=== PATIENT | female | born 1985 | race Caucasian/White ===

== ENCOUNTER 2021-01-19 12:46 | Inpatient (IN) | payer BC ==
[2021-01-19] MEDS ORDERED: Sodium Chloride 0.9% 10 ML Syringe FLUSH PRN (13:58)
[2021-01-19] MEDS ORDERED: Water For Irrigation,Sterile 1,000 ML Container IRR PRN (13:58)
[2021-01-19] MEDS ORDERED: Sodium Chloride 0.9% 2.5 ML Syringe FLUSH PRN (13:58)
[2021-01-19] MEDS ORDERED: Nalbuphine 10 MG/1 ML Vial IVPUSH PRN (13:58)
[2021-01-19] MEDS ORDERED: Tranexamic Acid 1,000 MG in Sodium Chloride 0.9% 100 ML IV PRN (13:58)
[2021-01-19] MEDS ORDERED: Sodium Chloride 0.9% 10 ML SDV IV PRN (13:58)
[2021-01-19] MEDS ORDERED: Methylergonovine 0.2 MG/1 ML Amp IM PRN (13:58)
[2021-01-19] MEDS ORDERED: Butorphanol 1 MG/ML SDV IVPUSH PRN (13:58)
[2021-01-19] MEDS ORDERED: Misoprostol 200 MCG Tab PO PRN (13:58)
[2021-01-19] MEDS ORDERED: Terbutaline 1 MG/ML SDV SUBCUT PRN (13:58)
[2021-01-19] MEDS ORDERED: Lidocaine 1% 50 ML MDV INJECT PRN (13:58)
[2021-01-19] MEDS ORDERED: Misoprostol 25 MCG (1/4 of 100 MCG) Tab VAG PRN (13:58)
[2021-01-19] MEDS ORDERED: Oxytocin/0.9 % Sodium Chloride 30 UNIT/500 ML BAG IV SCH ×2 (14:00)
[2021-01-19] MEDS ORDERED: Ampicillin 2 GM in Sodium Chloride 0.9% 100 ML IV ONE (14:30)
[2021-01-19] MEDS: Lactated Ringers 1,000 ML IV SCH ×2 (14:42→20:49)
[2021-01-19 18:14] LABS: BLOOD UREA NITROGEN,BUN 8 mg/dL (7.0-18.0); CARBON DIOXIDE,CO2 23.7 mmol/L (21.0-32.0); CHLORIDE,CL 102 mmol/L (98-107); GLUCOSE RANDOM 114 mg/dL (74-106); POTASSIUM,K 4.2 mmol/L (3.5-5.1); SODIUM,NA 137 mmol/L (136-145)
[2021-01-19] MEDS ORDERED: Dinoprostone 10 MG Insert VAG ONE (19:00)
[2021-01-19] MEDS: Ampicillin 1 GM in Sodium Chloride 0.9% 50 ML IV SCH ×2 (19:40→23:45)
[2021-01-20] MEDS: Ampicillin 1 GM in Sodium Chloride 0.9% 50 ML IV SCH ×6 (07:40→23:53)
[2021-01-20] MEDS: Lactated Ringers 1,000 ML IV SCH ×3 (07:41→18:47)
[2021-01-20] MEDS ORDERED: Bupivacaine 0.25% 10 ML SDV ONE (16:58)
[2021-01-20] MEDS ORDERED: Ropivacaine HCl/PF 200 ML ONE (16:58)
--- NOTE | 2021-01-20 17:40 | PCM.PREANE ---
Preanesthetic Assessment - Anesthesia/Transfusion/Family Hx Anesthesia History: Prior Anesthesia Without Reaction Transfusion History: No Prior Transfusion(s) - Review of Systems General: No Symptoms Pulmonary: No Symptoms Cardiovascular: No Symptoms Gastrointestinal: No Symptoms Neurological: No Symptoms Other: Reports: None - Physical Assessment Height: 5 ft 6 in Weight: 115.394 kg ASA Class: 2 Mental Status: Alert & Oriented x3 Airway Class: Mallampati = 2 Dentition: Reports: Normal Dentition Thyro-Mental Finger Breadths: 3 Mouth Opening Finger Breadths: 3 ROM/Head Extension: Full Lungs: Clear to Auscultation, Normal Respiratory Effort Cardiovascular: Regular Rate, Regular Rhythm - Lab Values: Laboratory Last Values WBC 12.83 K/uL (4.0-11.0) H 01/19/21 13:31 RBC 4.44 M/uL (4.30-5.90) 01/19/21 13:31 Hgb 12.3 g/dL (12.0-16.0) 01/19/21 13:31 Hct 37.5 % (36.0-46.0) 01/19/21 13:31 MCV 84.5 fL (80.0-98.0) 01/19/21 13:31 MCH 27.7 pg (27.0-32.0) 01/19/21 13:31 MCHC 32.8 g/dL (31.0-37.0) 01/19/21 13:31 RDW Std Deviation 44.5 fl (28.0-62.0) 01/19/21 13:31 RDW Coeff of Shahab 15 % (11.0-15.0) 01/19/21 13:31 Plt Count 282 K/uL (150-400) 01/19/21 13:31 MPV 12.80 fL (7.40-12.00) H 01/19/21 13:31 Sodium 137 mmol/L (136-145) 01/19/21 17:42 Potassium 4.2 mmol/L (3.5-5.1) 01/19/21 17:42 Chloride 102 mmol/L (98-107) 01/19/21 17:42 Carbon Dioxide 23.7 mmol/L (21.0-32.0) 01/19/21 17:42 BUN 8 mg/dL (7.0-18.0) 01/19/21 17:42 Creatinine 0.8 mg/dL (0.6-1.0) 01/19/21 17:42 Est Cr Clr Drug Dosing 91.01 mL/min 01/19/21 17:42 Estimated GFR (MDRD) > 60.0 ml/min 01/19/21 17:42 Glucose 114 mg/dL (74-106) H 01/19/21 17:42 Uric Acid 5.4 mg/dL (2.6-7.2) 01/19/21 17:42 Calcium 9.1 mg/dL (8.5-10.1) 01/19/21 17:42 Total Bilirubin 0.2 mg/dL (0.2-1.0) 01/19/21 17:42 AST 14 IU/L (15-37) L 01/19/21 17:42 ALT 18 IU/L (14-63) 01/19/21 17:42 Alkaline Phosphatase 145 U/L (46-116) H 01/19/21 17:42 Lactate Dehydrogenase 141 U/L (81-234) 01/19/21 17:42 Total Protein 6.8 g/dL (6.4-8.2) 01/19/21 17:42 Albumin 2.5 g/dL (3.4-5.0) L 01/19/21 17:42 Globulin 4.3 g/dL (2.6-4.0) H 01/19/21 17:42 Albumin/Globulin Ratio 0.6 (0.9-1.6) L 01/19/21 17:42 Urine Color YELLOW 01/19/21 18:06 Urine Appearance CLEAR 01/19/21 18:06 Urine pH 7.0 (5.0-8.0) 01/19/21 18:06 Ur Specific [place] 1.015 (1.001-1.035) 01/19/21 18:06 Urine Protein NEGATIVE mg/dL (NEGATIVE) 01/19/21 18:06 Urine Glucose (UA) NEGATIVE mg/dL (NEGATIVE) 01/19/21 18:06 Urine Ketones NEGATIVE mg/dL (NEGATIVE) 01/19/21 18:06 Urine Occult Blood SMALL (NEGATIVE) H 01/19/21 18:06 Urine Nitrite NEGATIVE (NEGATIVE) 01/19/21 18:06 Urine Bilirubin NEGATIVE (NEGATIVE) 01/19/21 18:06 Urine Urobilinogen 0.2 EU/dL (<2.0) 01/19/21 18:06 Ur Leukocyte Esterase NEGATIVE (NEGATIVE) 01/19/21 18:06 Urine RBC 1-3 (0-2/HPF) 01/19/21 18:06 Urine WBC 0-2 (0-5/HPF) 01/19/21 18:06 Ur Epithelial Cells MODERATE (NONE-FEW) 01/19/21 18:06 Urine Bacteria FEW (NEGATIVE) 01/19/21 18:06 Ur Random Creatinine 150.4 mg/dL 01/19/21 18:06 U Random Total Protein 22.8 mg/dL (<11.9) H 01/19/21 18:06 Protein/Creatinin Ratio 0.2 01/19/21 18:06 SARS-CoV-2 RNA (DARIAN) NEGATIVE (NEGATIVE) 01/19/21 13:43 Blood Type O POSITIVE 01/19/21 13:31 Antibody Screen NEGATIVE 01/19/21 13:31 - Allergies Allergies/Adverse Reactions: Allergies Allergy/AdvReac Type Severity Reaction Status Date / Time No Known Allergies Allergy Verified 01/19/21 14:09 - Acknowledgements Anesthesia Type Planned: Epidural Pt an Appropriate Candidate for the Planned Anesthesia: Yes Alternatives and Risks of Anesthesia Discussed w Pt/Guardian: Yes Pt/Guardian Understands and Agrees with Anesthesia Plan: Yes PreAnesthesia Questionnaire - Past Health History Medical/Surgical History: Denies Medical/Surgical History 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: , Other (See Below) Other OB/BYN History: IVF - SUBSTANCE USE Tobacco Use Status *Q: Never Tobacco User Second Hand Smoke Exposure: No Recreational Drug Use History: No - CURRENT (IN HOUSE) MEDS Current Meds: Current Medications Butorphanol Tartrate (Butorphanol 1 Mg/Ml Sdv) 1 mg IVPUSH Q1H PRN PRN Reason: Pain (severe 7-10) Carboprost Tromethamine (Carboprost Tromethamine 250 Mcg/1 Ml Amp) 250 mcg IM ASDIRECTED PRN PRN Reason: Post Hemorrhage Oxytocin/Sodium Chloride (Oxytocin 30 Unit In Ns 0.9% 500 Ml Premix) 30 unit in 500 mls @ 999 mls/hr IV TITRATE THAO Tranexamic Acid 1,000 mg/ (Sodium Chloride) 110 mls @ 660 mls/hr IV ONETIME PRN PRN Reason: Bleeding Oxytocin/Sodium Chloride (Oxytocin 30 Unit In Ns 0.9% 500 Ml Premix) 30 unit in 500 mls @ 2 mls/hr IV TITRATE [facility]; Protocol Last Admin: 01/20/21 14:36 Dose: 2 munits/min, 2 mls/hr Documented by: Ampicillin Sodium 1 gm/ Sodium (Chloride) 50 mls @ 100 mls/hr IV Q4H [facility] Last Admin: 01/20/21 16:43 Dose: 100 mls/hr Documented by: Lactated Ringer's (Ringers, Lactated) 1,000 mls @ 150 mls/hr IV ASDIRECTED [facility] Last Admin: 01/20/21 07:41 Dose: 150 mls/hr Documented by: Lidocaine HCl (Lidocaine 1% 50 Ml Mdv) 50 ml INJECT ONETIME PRN PRN Reason: Laceration repair Methylergonovine Maleate (Methylergonovine 0.2 Mg/1 Ml Amp) 0.2 mg IM ASDIRECTED PRN PRN Reason: Post Hemorrhage Misoprostol (Misoprostol 200 Mcg Tab) 200 mcg PO ONETIME PRN PRN Reason: Post Hemorrhage Nalbuphine HCl (Nalbuphine 10 Mg/1 Ml Vial) 10 mg IVPUSH Q1H PRN PRN Reason: Pain (severe 7-10) Sodium Chloride (Sodium Chloride 0.9% 10 Ml Syringe) 10 ml FLUSH ASDIRECTED PRN PRN Reason: Keep Vein Open Sodium Chloride (Sodium Chloride 0.9% 2.5 Ml Syringe) 2.5 ml FLUSH ASDIRECTED PRN PRN Reason: Keep Vein Open Sodium Chloride (Sodium Chloride 0.9% 10 Ml Sdv) 10 ml IV ASDIRECTED PRN PRN Reason: IV Use Sterile Water (Water For Irrigation,Sterile 1,000 Ml Container) 1,000 ml IRR ASDIRECTED PRN PRN Reason: delivery Terbutaline Sulfate (Terbutaline 1 Mg/Ml Sdv) 0.25 mg SUBCUT ASDIRECTED PRN PRN Reason: Tacysystole Discontinued Medications Bupivacaine HCl (Bupivacaine 0.25% 10 Ml Sdv) Confirm Administered Dose 10 ml .ROUTE .STK-MED ONE Stop: 01/20/21 16:59 Dinoprostone (Dinoprostone 10 Mg Insert) 10 mg VAG ONETIME ONE Stop: 01/19/21 19:01 Last Admin: 01/19/21 20:22 Dose: 10 mg Documented by: Ampicillin Sodium 2 gm/ Sodium (Chloride) 100 mls @ 200 mls/hr IV ONETIME ONE Stop: 01/19/21 14:59 Last Admin: 01/19/21 14:43 Dose: 200 mls/hr Documented by: Ropivacaine (Naropin 0.2%) Confirm Administered Dose 200 mls @ as directed .ROUTE .STK-MED ONE Stop: 01/20/21 16:59 Misoprostol (Misoprostol 25 Mcg (1/4 Of 100 Mcg) Tab) 25 mcg VAG Q4H PRN PRN Reason: Cervical Ripening Last Admin: 01/19/21 14:52 Dose: 25 mcg Documented by:
[2021-01-20] MEDS ORDERED: ePHEDrine 50 MG/ML SDV IVPUSH PRN (17:44)
--- NOTE | 2021-01-20 17:44 | PCM.SN.2 ---
Time Documentation - Pre-Procedure Checklist Attending Provider Aware: Yes Chart Reviewed: Yes Consent Signed: Yes Labs Reviewed: Yes VS/FHR Reviewed: Yes Patient Identification Confirmation Method: Reports: ID Band Visual, Verbal Patient Pt an Appropriate Candidate for the Planned Anesthesia: Yes Alternatives and Risks of Anesthesia Discussed w Pt/Guardian: Yes - Procedure Procedure Start Date: 01/20/21 Procedure Start Time: 16:[address]: Reports: Blood Pressure, Heart Rate, SPO2 Functional IV: Yes Safety Measures: Reports: Patient Identified, Procedure Verified, Site Verified, Procedure Time Out Patient Position: Reports: Sitting Prep: Reports: Betadine x3, Sterile Drape Local Anesthetic: Reports: Intradermal Wheal w Lidocaine 1% Regional Placement Level: Reports: L4-5 Needle: Reports: 17 g Touhy Approach: Reports: Midline Technique: Reports: STEFAN Plastic Syringe (STEFAN to saline) Parasthesia: Reports: None Fluid Obtained: Reports: None Test Dose Time: 17:12 Test Dose Medication: Reports: Lidocaine 1.5% w Epinephrine 1:200,000 Test Dose Response: Reports: Negative Loading Dose Time: 17:16 Loading Dose Medication: Bupivacaine 0.25% PF 10 ml in 2 separate doses 8 minutes apart Loading Dose Patient Position: semi-fowlers with ALVIN Continuous Infusion Start Time: 17:25 Continuous Infusion Medication: Ropivacaine 0.2% Continuous Infusion Rate: 16 ml/hr Continuous Infusion PCS Bolus Option: 4 ml q 20 min Continuous Infusion Lockout Dose (cc/hr): 28 Patient Position Post Placement: Reports: Semi-fowlers/ALVIN Post-procedure Pain Level: 2 Level Achieved: T-10 VS and FHR Monitored in Unit Post Placement: Yes Procedure End Date: 01/20/21 Procedure End Time: 17:57 Procedure Comment: Pt. tolerated procedure well.
--- NOTE | 2021-01-20 17:44 | PCM.POSTAN ---
POST ANESTHESIA ASSESSMENT - MENTAL STATUS Mental Status: Alert, Oriented - RESPIRATORY Respiratory Status: Respiratory Rate WNL, Airway Patent, O2 Saturation Stable - CARDIOVASCULAR CV Status: Pulse Rate WNL, Blood Pressure Stable - GASTROINTESTINAL GI Status: No Symptoms - POST OP HYDRATION Hydration Status: Adequate & Stable
[2021-01-20] MEDS ORDERED: Ropivacaine 0.2% 2MG/ML 200 ML Bag EPIDUR SCH (17:45)
[2021-01-21] MEDS ORDERED: Docusate Sodium 100 MG Cap PO PRN (01:35)
[2021-01-21] MEDS ORDERED: Bisacodyl 10 MG Supp RECTAL PRN (01:35)
[2021-01-21] MEDS ORDERED: Ibuprofen 400 MG Tab PO PRN (01:35)
[2021-01-21] MEDS ORDERED: Acetaminophen 500 MG Tab PO PRN (01:35)
[2021-01-21] MEDS ORDERED: Lanolin 100% Cream 7 GM Tube TOP PRN (01:35)
[2021-01-21] MEDS ORDERED: Ibuprofen 800 MG Tab PO PRN (01:35)
[2021-01-21] MEDS ORDERED: oxyCODONE 5 MG Tab PO PRN (01:35)
--- NOTE | 2021-01-21 01:41 | PCM.DEL ---
L & D Note - General Info Date of Service: 01/21/21 - Delivery Note Labor: Induced by Oxytocin Cervical Ripening Method: Misoprostil, Other (see below) (cervidil ) Delivery Outcome: Livebirth Infant Delivery Method: Spontaneous Vaginal Delivery-Single Presentation: Right Occiput Anterior (AMARI) Nuchal Cord: None Anesthesia Type: Epidural Amniotic Fluid Description: Clear Episiotomy Type: None Laceration: 2nd Degree Suture type: Other (2.0 monocryl ) Placenta: Intact Cord: 3 Vessels Estimated Blood Loss: 500 Resuscitation Needed: No Score 1 min: 8 Score 5 min: 9 Delivery Comments (Free Text/Narrative):: Live female delivered at 1254am , 8/9 weight 3360g - General Info Date of Service: 01/21/21 - Patient Data Weight - Most Recent: 115.394 kg Med Orders - Current: Current Medications Acetaminophen (Acetaminophen 500 Mg Tab) 500 mg PO Q4H PRN PRN Reason: Pain (mild 1-3) Acetaminophen (Acetaminophen 500 Mg Tab) 1,000 mg PO Q4H PRN PRN Reason: Pain (mild 1-3) Benzocaine/Menthol (Benzocaine/Menthol 20%-0.5% [place] 78 Gm Cannister) 78 gm TOP ASDIRECTED PRN PRN Reason: Perineal Comfort Measure Bisacodyl (Bisacodyl 10 Mg Supp) 10 mg RECTAL ONETIME PRN PRN Reason: Constipation Butorphanol Tartrate (Butorphanol 1 Mg/Ml Sdv) 1 mg IVPUSH Q1H PRN PRN Reason: Pain (severe 7-10) Carboprost Tromethamine (Carboprost Tromethamine 250 Mcg/1 Ml Amp) 250 mcg IM ASDIRECTED PRN PRN Reason: Post Hemorrhage Docusate Sodium (Docusate Sodium 100 Mg Cap) 100 mg PO Q12H PRN PRN Reason: Constipation Emollient Ointment (Lanolin 100% Cream 7 Gm Tube) 0 gm TOP ASDIRECTED PRN PRN Reason: Sore Nipples Ephedrine Sulfate (Ephedrine 50 Mg/Ml Sdv) 10 mg IVPUSH Q1M PRN PRN Reason: Hypotension Oxytocin/Sodium Chloride (Oxytocin 30 Unit In Ns 0.9% 500 Ml Premix) 30 unit in 500 mls @ 999 mls/hr IV TITRATE THAO Tranexamic Acid 1,000 mg/ (Sodium Chloride) 110 mls @ 660 mls/hr IV ONETIME PRN PRN Reason: Bleeding Oxytocin/Sodium Chloride (Oxytocin 30 Unit In Ns 0.9% 500 Ml Premix) 30 unit in 500 mls @ 2 mls/hr IV TITRATE [facility]; Protocol Last Titration: 01/20/21 20:54 Dose: 14 munits/min, 14 mls/hr Documented by: Ampicillin Sodium 1 gm/ Sodium (Chloride) 50 mls @ 100 mls/hr IV Q4H [facility] Last Admin: 01/20/21 23:53 Dose: 100 mls/hr Documented by: Lactated Ringer's (Ringers, Lactated) 1,000 mls @ 150 mls/hr IV ASDIRECTED [facility] Last Admin: 01/20/21 18:47 Dose: 150 mls/hr Documented by: Ibuprofen (Ibuprofen 400 Mg Tab) 400 mg PO Q4H PRN PRN Reason: Pain (mild 1-3) Ibuprofen (Ibuprofen 800 Mg Tab) 800 mg PO Q6H PRN PRN Reason: Cramping Lidocaine HCl (Lidocaine 1% 50 Ml Mdv) 50 ml INJECT ONETIME PRN PRN Reason: Laceration repair Methylergonovine Maleate (Methylergonovine 0.2 Mg/1 Ml Amp) 0.2 mg IM ASDIRECTED PRN PRN Reason: Post Hemorrhage Miscellaneous Medication (Phenylephrine Hcl In 0.9% Nacl 1 Mg/10 Ml Syringe) 0.1 mg IVPUSH Q1M PRN PRN Reason: Hypotension Misoprostol (Misoprostol 200 Mcg Tab) 200 mcg PO ONETIME PRN PRN Reason: Post Hemorrhage Oxycodone HCl (Oxycodone 5 Mg Tab) 5 mg PO Q2H PRN PRN Reason: Pain (severe 7-10) Ropivacaine (Ropivacaine 0.2% 2mg/Ml 200 Ml Bag) 400 mg EPIDUR ASDIRECTED THAO Sodium Chloride (Sodium Chloride 0.9% 10 Ml Syringe) 10 ml FLUSH ASDIRECTED PRN PRN Reason: Keep Vein Open Sodium Chloride (Sodium Chloride 0.9% 2.5 Ml Syringe) 2.5 ml FLUSH ASDIRECTED PRN PRN Reason: Keep Vein Open Sodium Chloride (Sodium Chloride 0.9% 10 Ml Sdv) 10 ml IV ASDIRECTED PRN PRN Reason: IV Use Sterile Water (Water For Irrigation,Sterile 1,000 Ml Container) 1,000 ml IRR ASDIRECTED PRN PRN Reason: delivery Witch Ysabel (Witch Ysabel Medicated Pads 40/Jar) 1 pad TOP ASDIRECTED PRN PRN Reason: comfort care Discontinued Medications Bupivacaine HCl (Bupivacaine 0.25% 10 Ml Sdv) Confirm Administered Dose 10 ml .ROUTE .STK-MED ONE Stop: 01/20/21 16:59 Dinoprostone (Dinoprostone 10 Mg Insert) 10 mg VAG ONETIME ONE Stop: 01/19/21 19:01 Last Admin: 01/19/21 20:22 Dose: 10 mg Documented by: Ampicillin Sodium 2 gm/ Sodium (Chloride) 100 mls @ 200 mls/hr IV ONETIME ONE Stop: 01/19/21 14:59 Last Admin: 01/19/21 14:43 Dose: 200 mls/hr Documented by: Ropivacaine (Naropin 0.2%) Confirm Administered Dose 200 mls @ as directed .ROUTE .STK-MED ONE Stop: 01/20/21 16:59 Misoprostol (Misoprostol 25 Mcg (1/4 Of 100 Mcg) Tab) 25 mcg VAG Q4H PRN PRN Reason: Cervical Ripening Last Admin: 01/19/21 14:52 Dose: 25 mcg Documented by: Nalbuphine HCl (Nalbuphine 10 Mg/1 Ml Vial) 10 mg IVPUSH Q1H PRN PRN Reason: Pain (severe 7-10) Terbutaline Sulfate (Terbutaline 1 Mg/Ml Sdv) 0.25 mg SUBCUT ASDIRECTED PRN PRN Reason: Tacysystole - Exam Urinary Catheter Total Time: 0Days 0Hours - Problem List & Annotations (1) Vaginal delivery SNOMED Code(s): 622439521 Code(s): O80 - ENCOUNTER FOR FULL-TERM UNCOMPLICATED DELIVERY Status: Acute Current Visit: Yes - Problem List Review Problem List Initiated/Reviewed/Updated: Yes - My Orders Last 24 Hours: My Active Orders 01/21/21 01:35 Patient Status [ADT] Routine May Shower [RC] ASDIRECTED Up ad Sejal [RC] ASDIRECTED Vital Signs [RC] PER UNIT ROUTINE BLOOD GAS ARTERIAL UMBILICAL [BG] Stat BLOOD GAS VENOUS UMBILICAL [BG] Stat Acetaminophen [Tylenol Extra Strength] 1,000 mg PO Q4H PRN Acetaminophen [Tylenol Extra Strength] 500 mg PO Q4H PRN Benzocaine/Menthol [Dermoplast Pain Relief 20%-0.5% [place]] 78 gm TOP ASDIRECTED PRN Docusate Sodium [Colace] 100 mg PO Q12H PRN Ibuprofen [Motrin] 400 mg PO Q4H PRN Ibuprofen [Motrin] 800 mg PO Q6H PRN Lanolin [Lansinoh HPA] See Dose Instructions TOP ASDIRECTED PRN bisacodyL [Dulcolax] 10 mg RECTAL ONETIME PRN oxyCODONE 5 mg PO Q2H PRN witch Ysabel [Tucks] 1 pad TOP ASDIRECTED PRN Assess Lochia [WOMSER] Per Unit Routine Assess Uterine Involution [WOMSER] Per Unit Routine Peripheral IV Discontinue [OM.PC] Routine Resuscitation Status Routine 01/22/21 05:11 HEMOGLOBIN/HEMATOCRIT,HH [HEME] Timed - Assessment Assessment:: 35y P1041 s/p PPD0 , GBS negative , Rubella immune , RH positive - Plan Plan:: Routine care
[2021-01-21] MEDS: Carboprost Tromethamine 250 MCG/1 ML Amp IM PRN ×2 (02:08→03:58)
[2021-01-21] MEDS ORDERED: Oxytocin 10 Units/1 ML SDV IM ONE (02:10)
[2021-01-21] MEDS ORDERED: Ondansetron 4 MG/2 ML SDV ONE ×2 (02:24→07:30)
--- NOTE | 2021-01-21 02:59 | PCM.SN.2 ---
- Free Text/Narrative Note: Patient called to notify that she has soaked pads with blood . patient seen at bedside , she noted to have pad saturated . Patient repositioned in dorsal lithotomy position. Bimanual massage done with lower uterine segment noted to be atonic TXA , Methergine , Hemabate and IM pitocin given . IV fluid running USS done : heterogenous endometrium , very scant doppler flow , fibroid noted . Patient observed for about 15mins in the room , bleeding noted to be scant afterward Jones catheter placed : U/O - 200ml EBL - 1000 VSS- wnl A/P 35yo P1 s/p with PPH PLan Monitor VSS Zofran given for nausea Reassess with fundal massage every 15 - 30 mins H/H today Time Documentation
--- NOTE | 2021-01-21 03:19 | US ---
INDICATION: Post hemorrhage TECHNIQUE: Ultrasound pelvis transabdominal. Real-time hooper scale sonographic images with color Doppler imaging obtained. COMPARISON: None FINDINGS: Uterus: 17 x 4 x 11 cm. Normal echotexture of the myometrium noted with no masses are seen. Endometrium: 40 mm with no definite vascularity seen. The endometrium is diffusely heterogeneous in appearance. Right ovary: The right ovary is not visualized. Left ovary: The left ovary is not visualized. Cul-de-sac: No significant ascites noted. IMPRESSION: 1. The endometrial complex is isoechoic and heterogeneous in appearance measuring 40 mm. Findings may be due to acute blood products but retained products of conception cannot be excluded. Dictated by Dewayne Alexander MD @ 01/21/2021 3:18:57 AM Dictated by: Dewayne Alexander MD @ 01/21/2021 03:19:00 (Electronically Signed)
[2021-01-21] MEDS: Lactated Ringers 1,000 ML IV SCH (04:24)
[2021-01-21] MEDS: Acetaminophen 500 MG Tab PO PRN (04:39)
[2021-01-21] MEDS: Ampicillin 1 GM in Sodium Chloride 0.9% 50 ML IV SCH (04:43)
[2021-01-21] MEDS ORDERED: ceFAZolin 2 GM in Premix Bag 1 BAG IV STA (07:21)
[2021-01-21] MEDS ORDERED: Dexamethasone 4 MG/ML 5 ML MDV ONE (07:30)
[2021-01-21] MEDS ORDERED: Rocuronium Bromide 50 MG/5 ML Syringe ONE (07:30)
[2021-01-21] MEDS ORDERED: Sugammadex Sodium 200 MG/2 ML VIAL ONE (07:30)
[2021-01-21] MEDS ORDERED: Propofol 200 MG/20 ML SDV ONE (07:30)
[2021-01-21] MEDS ORDERED: fentaNYL 100 MCG/2 ML SDV ONE (07:30)
[2021-01-21] MEDS ORDERED: Sodium Chloride 0.9% 20 ML ONE (07:31)
[2021-01-21] MEDS ORDERED: Dexmedetomidine 200 MCG/2 ML SDV ONE (07:31)
[2021-01-21] MEDS ORDERED: Calcium Chloride 10% 1 GM/10 ML Syringe ONE (07:38)
[2021-01-21] MEDS ORDERED: Albuterol 0.083% 2.5 MG/3 ML Neb Soln NEB PRN (07:46)
[2021-01-21] MEDS ORDERED: HYDROmorphone 1 MG/ML Syringe IVPUSH PRN (07:46)
[2021-01-21] MEDS ORDERED: Naloxone 0.4 MG/ML SDV IVPUSH PRN (07:46)
[2021-01-21] MEDS ORDERED: Morphine 2 MG/ML SYRINGE IVPUSH PRN (07:46)
[2021-01-21] MEDS ORDERED: Metoclopramide 10 MG/2 ML SDV IVPUSH PRN (07:46)
[2021-01-21] MEDS ORDERED: fentaNYL 100 MCG/2 ML SDV IVPUSH PRN (07:46)
[2021-01-21] MEDS ORDERED: Ondansetron 4 MG/2 ML SDV IVPUSH PRN (07:46)
[2021-01-21] MEDS ORDERED: Sodium Chloride 0.9% 10 ML Syringe FLUSH PRN (07:49)
[2021-01-21] MEDS ORDERED: Sodium Chloride 0.9% 10 ML SDV IV PRN (07:49)
[2021-01-21] MEDS ORDERED: Sodium Chloride 0.9% 2.5 ML Syringe FLUSH PRN (07:49)
--- NOTE | 2021-01-21 07:49 | PCM.PREANE ---
Preanesthetic Assessment - Anesthesia/Transfusion/Family Hx Anesthesia History: Prior Anesthesia Without Reaction Family History of Anesthesia Reaction: No Transfusion History: No Prior Transfusion(s) Intubation History: Unknown - Review of Systems General: No Symptoms Pulmonary: No Symptoms Cardiovascular: Dyspnea on Exertion Gastrointestinal: No Symptoms Neurological: No Symptoms Other: Reports: None - Physical Assessment NPO Status Date: 01/21/21 NPO Status Time: 00:00 Height: 5 ft 6 in Weight: 254 lb 6.4 oz ASA Class: 3E Mental Status: Alert & Oriented x3 Airway Class: Mallampati = 2 Dentition: Reports: Normal Dentition Thyro-Mental Finger Breadths: 2 Mouth Opening Finger Breadths: 2 ROM/Head Extension: Full Lungs: Clear to Auscultation, Normal Respiratory Effort Cardiovascular: Regular Rate, Regular Rhythm - Lab Values: Laboratory Last Values WBC 28.78 K/uL (4.0-11.0) H 01/21/21 04:15 RBC 3.41 M/uL (4.30-5.90) L 01/21/21 04:15 Hgb 9.6 g/dL (12.0-16.0) L 01/21/21 04:15 Hct 28.8 % (36.0-46.0) L 01/21/21 04:15 MCV 84.5 fL (80.0-98.0) 01/21/21 04:15 MCH 28.2 pg (27.0-32.0) 01/21/21 04:15 MCHC 33.3 g/dL (31.0-37.0) 01/21/21 04:15 RDW Std Deviation 47.2 fl (28.0-62.0) 01/21/21 04:15 RDW Coeff of Shahab 15 % (11.0-15.0) 01/21/21 04:15 Plt Count 281 K/uL (150-400) 01/21/21 04:15 MPV 11.90 fL (7.40-12.00) 01/21/21 04:15 Neut % (Auto) 88.3 % (48.0-80.0) H 01/21/21 04:15 Lymph % (Auto) 7.0 % (16.0-40.0) L 01/21/21 04:15 [place] % (Auto) 4.6 % (0.0-15.0) 01/21/21 04:15 Eos % (Auto) 0.0 % (0.0-7.0) 01/21/21 04:15 Baso % (Auto) 0.1 % (0.0-1.5) 01/21/21 04:15 Neut # (Auto) 25.4 K/uL (1.4-5.7) H 01/21/21 04:15 Lymph # (Auto) 2.0 K/uL (0.6-2.4) 01/21/21 04:15 Yancey # (Auto) 1.3 K/uL (0.0-0.8) H 01/21/21 04:15 Eos # (Auto) 0.0 K/uL (0.0-0.7) 01/21/21 04:15 Baso # (Auto) 0.0 K/uL (0.0-0.1) 01/21/21 04:15 Nucleated RBC % 0.0 /100WBC 01/21/21 04:15 Nucleated RBCs # 0 K/uL 01/21/21 04:15 Cord ABG pH 7.256 (7.18-7.38) 01/21/21 00:59 Cord ABG Base Excess -5 (-10--2) 01/21/21 00:59 Cord VBG pH 7.308 (7.25-7.45) 01/21/21 00:59 Cord VBG Base Excess -6 (-10--2) 01/21/21 00:59 Sodium 137 mmol/L (136-145) 01/19/21 17:42 Potassium 4.2 mmol/L (3.5-5.1) 01/19/21 17:42 Chloride 102 mmol/L (98-107) 01/19/21 17:42 Carbon Dioxide 23.7 mmol/L (21.0-32.0) 01/19/21 17:42 BUN 8 mg/dL (7.0-18.0) 01/19/21 17:42 Creatinine 0.8 mg/dL (0.6-1.0) 01/19/21 17:42 Est Cr Clr Drug Dosing 91.01 mL/min 01/19/21 17:42 Estimated GFR (MDRD) > 60.0 ml/min 01/19/21 17:42 Glucose 114 mg/dL (74-106) H 01/19/21 17:42 Uric Acid 5.4 mg/dL (2.6-7.2) 01/19/21 17:42 Calcium 9.1 mg/dL (8.5-10.1) 01/19/21 17:42 Total Bilirubin 0.2 mg/dL (0.2-1.0) 01/19/21 17:42 AST 14 IU/L (15-37) L 01/19/21 17:42 ALT 18 IU/L (14-63) 01/19/21 17:42 Alkaline Phosphatase 145 U/L (46-116) H 01/19/21 17:42 Lactate Dehydrogenase 141 U/L (81-234) 01/19/21 17:42 Total Protein 6.8 g/dL (6.4-8.2) 01/19/21 17:42 Albumin 2.5 g/dL (3.4-5.0) L 01/19/21 17:42 Globulin 4.3 g/dL (2.6-4.0) H 01/19/21 17:42 Albumin/Globulin Ratio 0.6 (0.9-1.6) L 01/19/21 17:42 Urine Color YELLOW 01/19/21 18:06 Urine Appearance CLEAR 01/19/21 18:06 Urine pH 7.0 (5.0-8.0) 01/19/21 18:06 Ur Specific [place] 1.015 (1.001-1.035) 01/19/21 18:06 Urine Protein NEGATIVE mg/dL (NEGATIVE) 01/19/21 18:06 Urine Glucose (UA) NEGATIVE mg/dL (NEGATIVE) 01/19/21 18:06 Urine Ketones NEGATIVE mg/dL (NEGATIVE) 01/19/21 18:06 Urine Occult Blood SMALL (NEGATIVE) H 01/19/21 18:06 Urine Nitrite NEGATIVE (NEGATIVE) 01/19/21 18:06 Urine Bilirubin NEGATIVE (NEGATIVE) 01/19/21 18:06 Urine Urobilinogen 0.2 EU/dL (<2.0) 01/19/21 18:06 Ur Leukocyte Esterase NEGATIVE (NEGATIVE) 01/19/21 18:06 Urine RBC 1-3 (0-2/HPF) 01/19/21 18:06 Urine WBC 0-2 (0-5/HPF) 01/19/21 18:06 Ur Epithelial Cells MODERATE (NONE-FEW) 01/19/21 18:06 Urine Bacteria FEW (NEGATIVE) 01/19/21 18:06 Ur Random Creatinine 150.4 mg/dL 01/19/21 18:06 U Random Total Protein 22.8 mg/dL (<11.9) H 01/19/21 18:06 Protein/Creatinin Ratio 0.2 01/19/21 18:06 SARS-CoV-2 RNA (DARIAN) NEGATIVE (NEGATIVE) 01/19/21 13:43 Blood Type O POSITIVE 01/19/21 13:31 Antibody Screen NEGATIVE 01/19/21 13:31 - Allergies Allergies/Adverse Reactions: Allergies Allergy/AdvReac Type Severity Reaction Status Date / Time No Known Allergies Allergy Verified 01/19/21 14:09 - Blood Blood Available: Yes Product(s) Available: PRBC, FFP, Platelets - Acknowledgements Anesthesia Type Planned: General Anesthesia Pt an Appropriate Candidate for the Planned Anesthesia: Yes Alternatives and Risks of Anesthesia Discussed w Pt/Guardian: Yes Pt/Guardian Understands and Agrees with Anesthesia Plan: Yes PreAnesthesia Questionnaire - Past Health History Medical/Surgical History: Denies Medical/Surgical History [employer] History: Reports: , Other (See Below) Other OB/BYN History: IVF - SUBSTANCE USE Tobacco Use Status *Q: Never Tobacco User Second Hand Smoke Exposure: No Recreational Drug Use History: No - CURRENT (IN HOUSE) MEDS Current Meds: Current Medications Acetaminophen (Acetaminophen 500 Mg Tab) 500 mg PO Q4H PRN PRN Reason: Pain (mild 1-3) Acetaminophen (Acetaminophen 500 Mg Tab) 1,000 mg PO Q4H PRN PRN Reason: Pain (mild 1-3) Last Admin: 01/21/21 04:39 Dose: 1,000 mg Documented by: Benzocaine/Menthol (Benzocaine/Menthol 20%-0.5% Wana 78 Gm Cannister) 78 gm TOP ASDIRECTED PRN PRN Reason: Perineal Comfort Measure Bisacodyl (Bisacodyl 10 Mg Supp) 10 mg RECTAL ONETIME PRN PRN Reason: Constipation Butorphanol Tartrate (Butorphanol 1 Mg/Ml Sdv) 1 mg IVPUSH Q1H PRN PRN Reason: Pain (severe 7-10) Carboprost Tromethamine (Carboprost Tromethamine 250 Mcg/1 Ml Amp) 250 mcg IM ASDIRECTED PRN PRN Reason: Post Hemorrhage Last Admin: 01/21/21 03:58 Dose: 250 mcg Documented by: Docusate Sodium (Docusate Sodium 100 Mg Cap) 100 mg PO Q12H PRN PRN Reason: Constipation Emollient Ointment (Lanolin 100% Cream 7 Gm Tube) 0 gm TOP ASDIRECTED PRN PRN Reason: Sore Nipples Ephedrine Sulfate (Ephedrine 50 Mg/Ml Sdv) 10 mg IVPUSH Q1M PRN PRN Reason: Hypotension Oxytocin/Sodium Chloride (Oxytocin 30 Unit In Ns 0.9% 500 Ml Premix) 30 unit in 500 mls @ 999 mls/hr IV TITRATE THAO Last Infusion: 01/21/21 02:00 Dose: 999 mls/hr Documented by: Tranexamic Acid 1,000 mg/ (Sodium Chloride) 110 mls @ 660 mls/hr IV ONETIME PRN PRN Reason: Bleeding Last Admin: 01/21/21 02:10 Dose: 660 mls/hr Documented by: Oxytocin/Sodium Chloride (Oxytocin 30 Unit In Ns 0.9% 500 Ml Premix) 30 unit in 500 mls @ 2 mls/hr IV TITRATE THAO; Protocol Last Titration: 01/21/21 01:05 Dose: 999 munits/min, 999 mls/hr Documented by: Lactated Ringer's (Ringers, Lactated) 1,000 mls @ 150 mls/hr IV ASDIRECTED THAO Last Admin: 01/21/21 04:24 Dose: 150 mls/hr Documented by: Cefazolin Sodium/Dextrose 2 gm (/ Premix) 50 mls @ 100 mls/hr IV ONETIME STA Stop: 01/21/21 07:50 Ibuprofen (Ibuprofen 400 Mg Tab) 400 mg PO Q4H PRN PRN Reason: Pain (mild 1-3) Ibuprofen (Ibuprofen 800 Mg Tab) 800 mg PO Q6H PRN PRN Reason: Cramping Lidocaine HCl (Lidocaine 1% 50 Ml Mdv) 50 ml INJECT ONETIME PRN PRN Reason: Laceration repair Methylergonovine Maleate (Methylergonovine 0.2 Mg/1 Ml Amp) 0.2 mg IM ASDIRECTED PRN PRN Reason: Post Hemorrhage Last Admin: 01/21/21 02:02 Dose: 0.2 mg Documented by: Miscellaneous Medication (Phenylephrine Hcl In 0.9% Nacl 1 Mg/10 Ml Syringe) 0.1 mg IVPUSH Q1M PRN PRN Reason: Hypotension Oxycodone HCl (Oxycodone 5 Mg Tab) 5 mg PO Q2H PRN PRN Reason: Pain (severe 7-10) Ropivacaine (Ropivacaine 0.2% 2mg/Ml 200 Ml Bag) 400 mg EPIDUR ASDIRECTED THAO Sodium Chloride (Sodium Chloride 0.9% 10 Ml Syringe) 10 ml FLUSH ASDIRECTED PRN PRN Reason: Keep Vein Open Sodium Chloride (Sodium Chloride 0.9% 2.5 Ml Syringe) 2.5 ml FLUSH ASDIRECTED PRN PRN Reason: Keep Vein Open Sodium Chloride (Sodium Chloride 0.9% 10 Ml Sdv) 10 ml IV ASDIRECTED PRN PRN Reason: IV Use Sterile Water (Water For Irrigation,Sterile 1,000 Ml Container) 1,000 ml IRR ASDIRECTED PRN PRN Reason: delivery Witch Ysabel (Witch Ysabel Medicated Pads 40/Jar) 1 pad TOP ASDIRECTED PRN PRN Reason: comfort care Discontinued Medications Bupivacaine HCl (Bupivacaine 0.25% 10 Ml Sdv) Confirm Administered Dose 10 ml .ROUTE .STK-MED ONE Stop: 01/20/21 16:59 Last Admin: 01/21/21 04:48 Dose: Not Given Documented by: Calcium Chloride (Calcium Chloride 10% 1 Gm/10 Ml Syringe) Confirm Administered Dose 1 gm .ROUTE .STK-MED ONE Stop: 01/21/21 07:39 Dexamethasone (Dexamethasone 4 Mg/Ml 5 Ml Mdv) Confirm Administered Dose 20 mg .ROUTE .STK-MED ONE Stop: 01/21/21 07:31 Dexmedetomidine HCl (Dexmedetomidine 200 Mcg/2 Ml Sdv) Confirm Administered Dose 200 mcg .ROUTE .STK-MED ONE Stop: 01/21/21 07:32 Dinoprostone (Dinoprostone 10 Mg Insert) 10 mg VAG ONETIME ONE Stop: 01/19/21 19:01 Last Admin: 01/19/21 20:22 Dose: 10 mg Documented by: Fentanyl (Fentanyl 100 Mcg/2 Ml Sdv) Confirm Administered Dose 100 mcg .ROUTE .STK-MED ONE Stop: 01/21/21 07:31 Ampicillin Sodium 2 gm/ Sodium (Chloride) 100 mls @ 200 mls/hr IV ONETIME ONE Stop: 01/19/21 14:59 Last Admin: 01/19/21 14:43 Dose: 200 mls/hr Documented by: Ampicillin Sodium 1 gm/ Sodium (Chloride) 50 mls @ 100 mls/hr IV Q4H THAO Last Admin: 01/21/21 04:43 Dose: Not Given Documented by: Ropivacaine (Naropin 0.2%) Confirm Administered Dose 200 mls @ as directed .ROUTE .STK-MED ONE Stop: 01/20/21 16:59 Last Admin: 01/21/21 04:48 Dose: Not Given Documented by: Sodium Chloride (Normal Saline) Confirm Administered Dose 20 mls @ as directed .ROUTE .STK-MED ONE Stop: 01/21/21 07:32 Lidocaine HCl (Lidocaine 1% 5 Ml Sdv) Confirm Administered Dose 5 ml .ROUTE .ST-MED ONE Stop: 01/21/21 07:31 Misoprostol (Misoprostol 200 Mcg Tab) 200 mcg PO ONETIME PRN PRN Reason: Post Hemorrhage Misoprostol (Misoprostol 25 Mcg (1/4 Of 100 Mcg) Tab) 25 mcg VAG Q4H PRN PRN Reason: Cervical Ripening Last Admin: 01/19/21 14:52 Dose: 25 mcg Documented by: Nalbuphine HCl (Nalbuphine 10 Mg/1 Ml Vial) 10 mg IVPUSH Q1H PRN PRN Reason: Pain (severe 7-10) Ondansetron HCl (Ondansetron 4 Mg/2 Ml Sdv) Confirm Administered Dose 4 mg .ROUTE .STK-MED ONE Stop: 01/21/21 02:25 Last Admin: 01/21/21 02:27 Dose: 4 mg Documented by: Ondansetron HCl (Ondansetron 4 Mg/2 Ml Sdv) Confirm Administered Dose 4 mg .ROUTE .STK-MED ONE Stop: 01/21/21 07:31 Oxytocin (Oxytocin 10 Units/1 Ml Sdv) 10 unit IM ONETIME ONE Stop: 01/21/21 02:11 Last Admin: 01/21/21 02:10 Dose: 10 unit Documented by: Propofol (Propofol 200 Mg/20 Ml Sdv) Confirm Administered Dose 200 mg .ROUTE .STK-MED ONE Stop: 01/21/21 07:31 Rocuronium [place] (Rocuronium [place] 50 Mg/5 Ml Syringe) Confirm Administered Dose 50 mg .ROUTE .STK-MED ONE Stop: 01/21/21 07:31 Succinylcholine Chloride (Succinylcholine Chloride 200 Mg/10 Ml Syr) Confirm Administered Dose 200 mg .ROUTE .[employer]ics-MED ONE Stop: 01/21/21 07:31 Sugammadex Sodium (Sugammadex Sodium 200 Mg/2 Ml Vial) Confirm Administered Dose 200 mg .ROUTE .[employer]-MED ONE Stop: 01/21/21 07:31 Terbutaline Sulfate (Terbutaline 1 Mg/Ml Sdv) 0.25 mg SUBCUT ASDIRECTED PRN PRN Reason: Tacysystole
[2021-01-21] MEDS ORDERED: ceFAZolin 1 GM Vial ONE (08:28)
[2021-01-21] MEDS ORDERED: Oxytocin 10 Units/1 ML SDV ONE (08:54)
[2021-01-21] MEDS ORDERED: Metoprolol Tartrate 5 MG/5 ML SDV ONE (10:15)
--- NOTE | 2021-01-21 10:24 | PCM.OPNOTE ---
- General Post-Op/Procedure Note Date of Surgery/Procedure: 01/21/21 Operative Procedure(s): Examination under anaesthesia. Ultrasound guided endometrial curettage. Ultrasound guided placement of bakri balloon Findings: EUA - 20 week sized firm uterus USS - normal endometrial strip Normal patulous cervix with no laceration Bakri placed with catheter guide , vaginal packing placed Pre Op Diagnosis: Hemorrhage. Suspected uterine atony vs Retained products of conception Post-Op Diagnosis: PPH. Retained products Anesthesia Technique: General ET Tube Primary Surgeon: Clarisa Stone Anesthesia Provider: Christ Kenney Fluid Replacement, Intraop: 1,000 Output, Urine Amount: 100 EBL in mLs: 100 Complications: None Condition: Good Free Text/Narrative:: Intake & Output 01/20/21 01/21/21 01/21/21 22:59 06:59 14:59 Intake Total 2150 Output Total 700 100 Balance 1450 -100 Bkr
--- NOTE | 2021-01-21 10:29 | PCM.POSTAN ---
POST ANESTHESIA ASSESSMENT - MENTAL STATUS Mental Status: Alert, Oriented - VITAL SIGNS Vital Signs: Last Vital Signs Temp 98.6 F 01/21/21 09:30 Pulse 103 H 01/21/21 09:30 Resp 14 01/21/21 09:30 BP 125/58 L 01/21/21 09:30 Pulse Ox 97 01/21/21 09:30 - RESPIRATORY Respiratory Status: Respiratory Rate WNL, Airway Patent, O2 Saturation Stable - CARDIOVASCULAR CV Status: Elevated Pulse Rate, Elevated Blood Pressure - GASTROINTESTINAL GI Status: No Symptoms - POST OP HYDRATION Hydration Status: Adequate & Stable, Hypovolemic (Recieved 2 units PRBC in PACU. VSS)
--- NOTE | 2021-01-21 10:29 | PCM48HPAN ---
Post Anesthesia Note - EVALUATION WITHIN 48HRS OF ANESTHETIC Vital Signs in Normal Range: Yes Patient Participated in Evaluation: Yes Respiratory Function Stable: Yes Airway Patent: Yes Cardiovascular Function Stable: Yes Hydration Status Stable: Yes Pain Control Satisfactory: Yes Nausea and Vomiting Control Satisfactory: Yes Mental Status Recovered: Yes Vital Signs: Last Vital Signs Temp 98.6 F 01/21/21 09:30 Pulse 103 H 01/21/21 09:30 Resp 14 01/21/21 09:30 BP 125/58 L 01/21/21 09:30 Pulse Ox 97 01/21/21 09:30
--- NOTE | 2021-01-21 15:51 | OR ---
SURGEON: BENITO STONE DATE OF PROCEDURE: 01/21/2021 PRIMARY SURGEON: Dr. Benito Stone. PREOPERATIVE DIAGNOSES: A 35-year-old 5, para 0-0-4-0, at 38 weeks 2 days, admitted for induction of labor secondary to oligohydramnios, group B streptococcus positive, previous . POSTOPERATIVE DIAGNOSES: A 35-year-old 5, para 0-0-4-0, at 38 weeks 2 days, admitted for induction of labor secondary to oligohydramnios, group B streptococcus positive, previous . PROCEDURES: Normal spontaneous vaginal delivery and repair of a second-degree laceration. ANESTHESIA: Epidural. ESTIMATED BLOOD LOSS: 500. NOTES AND FINDINGS: Normal live female delivered. scores are 8 and 9. weight 3360g . BRIEF HISTORY ABOUT THE PATIENT: A 35-year-old G5, P0-0-4-0, 38 weeks 2 days, was admitted for induction of labor secondary to oligohydramnios. She had an GRACE of less than 5, was an IVF . GBS was also positive. The patient came in. She got Cytotec, however, had a reaction and side effects, so was switched to Cervidil. She became about from 1 to 3 cm dilated. At this point, she was ruptured. Pitocin was started. She was 3 cm when Pitocin was started, and she had a quick labor course afterwards, became fully dilated, and was encouraged to push with good pushing effort. PROCEDURE IN DETAIL: With good pushing effort, she delivered the head in AMARI position followed subsequently by the anterior and posterior shoulder and then the body. The was placed on the abdomen. Delayed cord clamping was observed. Cord blood gases was obtained Then, the placenta was delivered by controlled cord traction. The placenta was noted to be small, however, was complete, and a 3- vessel cord was noted. The second-degree laceration was repaired. She tolerated the procedure well. COUNTS: All instrument and pad counts were correct x2. GENA / JOEY /[id number] MTDQuinten
--- NOTE | 2021-01-21 15:51 | OR ---
SURGEON: BENITO SMITH DATE OF PROCEDURE: 01/21/2021 PREOPERATIVE DIAGNOSES: hemorrhage secondary to suspected uterine atony versus retained products. POSTOPERATIVE DIAGNOSES: hemorrhage secondary to uterine atony. PROCEDURES: 1. Examination under anesthesia. 2. Ultrasound-guided uterine curettage. 3. Endometrial curettage. 4. Ultrasound-guided placement of Bakri balloon. ESTIMATED BLOOD LOSS: 100. INTRAVENOUS FLUID: 1000. URINE OUTPUT: 100. NOTES AND FINDINGS: About 20 weeks size uterus. Ultrasound showed normal endometrial stripe and cervix was noted to be intact. No lacerations. Brief History: Patient noted to have vaginal bleeding despite receiving Pitocin X3 doses , HemobateX 2 doses Methergine X 1 dose , TXA X 1 dose. She will have occasional heavy bleeding or passage of clots . Total blood loss after delivery was 800 hemoglobin Bakri placed 7 DESCRIPTION OF PROCEDURE: The patient was taken to the operating room where general anesthesia was performed without difficulty. She was prepared and draped in the dorsal lithotomy position with Ok stirrups. The cervix was exposed with a bivalve speculum. Anterior lip of cervix was held with ring forceps and was carried around circumferentially to ensure there was no cervical laceration. After this, the Banjo currette was then placed under direct ultrasound guidance to the fundus, and 3 strokes of curette was done on the bush of the uterus. The uterus was noted to be empty and little clots retrieved. Then, the Bakri balloon was then assembled and placed with the aid of a catheter guide into the fundus of the uterus. It was inflated with 310 mL of normal saline, and the Bakri was connected to the Jones urine bag . after that the vagina was packed. Hemoglobin and hematocrit were done prior to procedure and was noted to be at 7. Anesthesia ordered 2 units of blood with FFP to be given in the PACU. The patient tolerated the procedure well. All instrument and pad counts correct x2. GENA / JOEY /[id number] [place]
[2021-01-21] MEDS: ceFAZolin 1 GM in Premix Bag 1 BAG IV SCH (16:55)
[2021-01-22] MEDS ORDERED: ceFAZolin 1 GM Vial IVPUSH ONE (01:00)
[2021-01-22] MEDS: ceFAZolin 1 GM in Premix Bag 1 BAG IV SCH ×2 (01:18→15:03)
[2021-01-22 07:01] LABS: BLOOD UREA NITROGEN,BUN 10 mg/dL (7.0-18.0); CARBON DIOXIDE,CO2 23.2 mmol/L (21.0-32.0); CHLORIDE,CL 106 mmol/L (98-107); GLUCOSE RANDOM 132 mg/dL (74-106); POTASSIUM,K 4.4 mmol/L (3.5-5.1); SODIUM,NA 138 mmol/L (136-145)
[2021-01-22] MEDS ORDERED: Furosemide 20 MG Tab PO ONE ×2 (11:00→21:00)
[2021-01-22] MEDS ORDERED: Amoxicillin/Clavulanate K 875-125 MG Tab PO ONE (11:34)
--- NOTE | 2021-01-22 11:59 | PCM.PNPP ---
- General Info Date of Service: 01/22/21 Admission Dx/Problem (Free Text): S/p Vaginal delivery S/p EUA , uterine curettage , Placement of bakri balloon s/p 2uPRBC and 1FFP . Subjective Update: Patient seen at bedside , she is feeling much better ,EBL since procedure - 30ml She is breast and bottle feeding She received 2UPRBC and 1FFP H/H: 7.9 --> 7.1 WBC: 28 --> 21 BPS 100s - 160s/70s . Had just 1 BP of 160s / 90s Bakri balloon and vaginal packing removed Functional Status: Reports: Pain Controlled, Tolerating Diet, Ambulating, Urinating - Review of Systems General: Reports: No Symptoms HEENT: Reports: No Symptoms Pulmonary: Reports: No Symptoms Cardiovascular: Reports: No Symptoms Gastrointestinal: Reports: No Symptoms Genitourinary: Reports: No Symptoms Musculoskeletal: Reports: No Symptoms Skin: Reports: No Symptoms Neurological: Reports: No Symptoms Psychiatric: Reports: No Symptoms - General Info Date of Service: 01/22/21 - Patient Data Vital Signs - Most Recent: Last Vital Signs Temp 36.1 C 01/22/21 08:00 Pulse 102 H 01/22/21 08:00 Resp 18 01/22/21 08:00 BP 101/54 L 01/22/21 08:00 Pulse Ox 100 01/22/21 08:00 Weight - Most Recent: 115.394 kg I&O - Last 24 Hours: Intake & Output 01/21/21 01/22/21 01/22/21 22:59 06:59 14:59 Output Total 1500 3554 1300 Balance -1500 -5048 -1300 Lab Results - Last 24 Hours: Laboratory Results - last 24 hr 01/19/21 01/22/21 01/22/21 Range/Units 13:31 06:27 06:27 WBC 21.47 H (4.0-11.0) K/uL RBC 2.54 L (4.30-5.90) M/uL Hgb 7.1 L (12.0-16.0) g/dL Hct 21.3 L (36.0-46.0) % MCV 83.9 (80.0-98.0) fL MCH 28.0 (27.0-32.0) pg MCHC 33.3 (31.0-37.0) g/dL RDW Std Deviation 49.4 (28.0-62.0) fl RDW Coeff of Shahab 16 H (11.0-15.0) % Plt Count 188 (150-400) K/uL MPV 11.30 (7.40-12.00) fL Neut % (Auto) 75.5 (48.0-80.0) % Lymph % (Auto) 17.4 (16.0-40.0) % Yell % (Auto) 6.9 (0.0-15.0) % Eos % (Auto) 0.1 (0.0-7.0) % Baso % (Auto) 0.1 (0.0-1.5) % Neut # (Auto) 16.2 H (1.4-5.7) K/uL Lymph # (Auto) 3.7 H (0.6-2.4) K/uL Yell # (Auto) 1.5 H (0.0-0.8) K/uL Eos # (Auto) 0.0 (0.0-0.7) K/uL Baso # (Auto) 0.0 (0.0-0.1) K/uL Nucleated RBC % 0.0 /100WBC Nucleated RBCs # 0 K/uL Sodium 138 (136-145) mmol/L Potassium 4.4 (3.5-5.1) mmol/L Chloride 106 (98-107) mmol/L Carbon Dioxide 23.2 (21.0-32.0) mmol/L BUN 10 (7.0-18.0) mg/dL Creatinine 0.8 (0.6-1.0) mg/dL Est Cr Clr Drug Dosing 91.01 mL/min Estimated GFR (MDRD) > 60.0 ml/min Glucose 132 H (74-106) mg/dL Calcium 7.8 L (8.5-10.1) mg/dL Total Bilirubin 0.2 (0.2-1.0) mg/dL AST 19 (15-37) IU/L ALT 14 (14-63) IU/L Alkaline Phosphatase 88 (46-116) U/L Total Protein 4.8 L (6.4-8.2) g/dL Albumin 1.6 L (3.4-5.0) g/dL Globulin 3.2 (2.6-4.0) g/dL Albumin/Globulin Ratio 0.5 L (0.9-1.6) Blood Type O POSITIVE Antibody Screen NEGATIVE Crossmatch See Detail Med Orders - Current: Current Medications Acetaminophen (Acetaminophen 500 Mg Tab) 500 mg PO Q4H PRN PRN Reason: Pain (mild 1-3) Acetaminophen (Acetaminophen 500 Mg Tab) 1,000 mg PO Q4H PRN PRN Reason: Pain (mild 1-3) Last Admin: 01/21/21 04:39 Dose: 1,000 mg Documented by: Albuterol (Albuterol 0.083% 2.5 Mg/3 Ml Neb Soln) 2.5 mg NEB ONETIME PRN PRN Reason: Wheezing Benzocaine/Menthol (Benzocaine/Menthol 20%-0.5% [place] 78 Gm Cannister) 78 gm TOP ASDIRECTED PRN PRN Reason: Perineal Comfort Measure Bisacodyl (Bisacodyl 10 Mg Supp) 10 mg RECTAL ONETIME PRN PRN Reason: Constipation Carboprost Tromethamine (Carboprost Tromethamine 250 Mcg/1 Ml Amp) 250 mcg IM ASDIRECTED PRN PRN Reason: Post Hemorrhage Last Admin: 01/21/21 03:58 Dose: 250 mcg Documented by: Docusate Sodium (Docusate Sodium 100 Mg Cap) 100 mg PO Q12H PRN PRN Reason: Constipation Last Admin: 01/22/21 11:32 Dose: 100 mg Documented by: Droperidol (Droperidol 5 Mg/2 Ml Sdv) 0.625 mg IVPUSH ONETIME PRN PRN Reason: Nausea/Vomiting Emollient Ointment (Lanolin 100% Cream 7 Gm Tube) 0 gm TOP ASDIRECTED PRN PRN Reason: Sore Nipples Ephedrine Sulfate (Ephedrine 50 Mg/Ml Sdv) 10 mg IVPUSH Q1M PRN PRN Reason: Hypotension Fentanyl (Fentanyl 100 Mcg/2 Ml Sdv) 50 mcg IVPUSH Q5M PRN PRN Reason: Pain (mild 1-3) Hydromorphone HCl (Hydromorphone 1 Mg/Ml Syringe) 1 mg IVPUSH Q10M PRN PRN Reason: Pain (moderate 4-6) Oxytocin/Sodium Chloride (Oxytocin 30 Unit In Ns 0.9% 500 Ml Premix) 30 unit in 500 mls @ 999 mls/hr IV TITRATE THAO Last Infusion: 01/21/21 02:00 Dose: 999 mls/hr Documented by: Tranexamic Acid 1,000 mg/ (Sodium Chloride) 110 mls @ 660 mls/hr IV ONETIME PRN PRN Reason: Bleeding Last Admin: 01/21/21 02:10 Dose: 660 mls/hr Documented by: Oxytocin/Sodium Chloride (Oxytocin 30 Unit In Ns 0.9% 500 Ml Premix) 30 unit in 500 mls @ 2 mls/hr IV TITRATE THAO; Protocol Last Titration: 01/21/21 01:05 Dose: 999 munits/min, 999 mls/hr Documented by: Lactated Ringer's (Ringers, Lactated) 1,000 mls @ 150 mls/hr IV ASDIRECTED THAO Last Admin: 01/21/21 04:24 Dose: 150 mls/hr Documented by: Ibuprofen (Ibuprofen 400 Mg Tab) 400 mg PO Q4H PRN PRN Reason: Pain (mild 1-3) Ibuprofen (Ibuprofen 800 Mg Tab) 800 mg PO Q6H PRN PRN Reason: Cramping Methylergonovine Maleate (Methylergonovine 0.2 Mg/1 Ml Amp) 0.2 mg IM ASDIRECTED PRN PRN Reason: Post Hemorrhage Last Admin: 01/21/21 02:02 Dose: 0.2 mg Documented by: Metoclopramide HCl (Metoclopramide 10 Mg/2 Ml Sdv) 10 mg IVPUSH ONETIME PRN PRN Reason: Nausea/Vomiting Miscellaneous Medication (Phenylephrine Hcl In 0.9% Nacl 1 Mg/10 Ml Syringe) 0.1 mg IVPUSH Q1M PRN PRN Reason: Hypotension Morphine Sulfate (Morphine 2 Mg/Ml Syringe) 2 mg IVPUSH Q10M PRN PRN Reason: Pain (severe 7-10) Naloxone HCl (Naloxone 0.4 Mg/Ml Sdv) 0.1 mg IVPUSH ASDIRECTED PRN PRN Reason: Respiratory Depression Ondansetron HCl (Ondansetron 4 Mg/2 Ml Sdv) 4 mg IVPUSH ONETIME PRN PRN Reason: Nausea/Vomiting Oxycodone HCl (Oxycodone 5 Mg Tab) 5 mg PO Q2H PRN PRN Reason: Pain (severe 7-10) Ropivacaine (Ropivacaine 0.2% 2mg/Ml 200 Ml Bag) 400 mg EPIDUR ASDIRECTED THAO Sodium Chloride (Sodium Chloride 0.9% 10 Ml Syringe) 10 ml FLUSH ASDIRECTED PRN PRN Reason: Keep Vein Open Sodium Chloride (Sodium Chloride 0.9% 2.5 Ml Syringe) 2.5 ml FLUSH ASDIRECTED PRN PRN Reason: Keep Vein Open Sodium Chloride (Sodium Chloride 0.9% 10 Ml Sdv) 10 ml IV ASDIRECTED PRN PRN Reason: IV Use Sodium Chloride (Sodium Chloride 0.9% 10 Ml Syringe) 10 ml FLUSH ASDIRECTED PRN PRN Reason: Keep Vein Open Sodium Chloride (Sodium Chloride 0.9% 2.5 Ml Syringe) 2.5 ml FLUSH ASDIRECTED PRN PRN Reason: Keep Vein Open Sodium Chloride (Sodium Chloride 0.9% 10 Ml Sdv) 10 ml IV ASDIRECTED PRN PRN Reason: IV Use Witch [place]sabel (Witch [place]sabel Medicated Pads 40/Jar) 1 pad TOP ASDIRECTED PRN PRN Reason: comfort care Discontinued Medications Amoxicillin/Clavulanate Potassium (Amoxicillin/Clavulanate K 875-125 Mg Tab) 1 tab PO Q12HR THAO Amoxicillin/Clavulanate Potassium (Amoxicillin/Clavulanate K 875-125 Mg Tab) 1 tab PO ONETIME ONE Stop: 01/22/21 11:35 Last Admin: 01/22/21 11:51 Dose: 1 tab Documented by: Bupivacaine HCl (Bupivacaine 0.25% 10 Ml Sdv) Confirm Administered Dose 10 ml .ROUTE .STK-MED ONE Stop: 01/20/21 16:59 Last Admin: 01/21/21 04:48 Dose: Not Given Documented by: Butorphanol Tartrate (Butorphanol 1 Mg/Ml Sdv) 1 mg IVPUSH Q1H PRN PRN Reason: Pain (severe 7-10) Calcium Chloride (Calcium Chloride 10% 1 Gm/10 Ml Syringe) Confirm Administered Dose 1 gm .ROUTE .STK-MED ONE Stop: 01/21/21 07:39 Cefazolin Sodium (Cefazolin 1 Gm Vial) Confirm Administered Dose 2 gm .ROUTE .STK-MED ONE Stop: 01/21/21 08:29 Cefazolin Sodium (Cefazolin 1 Gm Vial) 1 gm IVPUSH ONETIME ONE Stop: 01/22/21 01:01 Last Admin: 01/22/21 01:00 Dose: 1 gm Documented by: Dexamethasone (Dexamethasone 4 Mg/Ml 5 Ml Mdv) Confirm Administered Dose 20 mg .ROUTE .STK-MED ONE Stop: 01/21/21 07:31 Dexmedetomidine HCl (Dexmedetomidine 200 Mcg/2 Ml Sdv) Confirm Administered Dose 200 mcg .ROUTE .STK-MED ONE Stop: 01/21/21 07:32 Dinoprostone (Dinoprostone 10 Mg Insert) 10 mg VAG ONETIME ONE Stop: 01/19/21 19:01 Last Admin: 01/19/21 20:22 Dose: 10 mg Documented by: Fentanyl (Fentanyl 100 Mcg/2 Ml Sdv) Confirm Administered Dose 100 mcg .ROUTE .STK-MED ONE Stop: 01/21/21 07:31 Furosemide (Furosemide 20 Mg Tab) 20 mg PO ONETIME ONE Stop: 01/22/21 11:01 Last Admin: 01/22/21 11:32 Dose: 20 mg Documented by: Ampicillin Sodium 2 gm/ Sodium (Chloride) 100 mls @ 200 mls/hr IV ONETIME ONE Stop: 01/19/21 14:59 Last Admin: 01/19/21 14:43 Dose: 200 mls/hr Documented by: Ampicillin Sodium 1 gm/ Sodium (Chloride) 50 mls @ 100 mls/hr IV Q4H [facility] Last Admin: 01/21/21 04:43 Dose: Not Given Documented by: Ropivacaine (Naropin 0.2%) Confirm Administered Dose 200 mls @ as directed .ROUTE .STK-MED ONE Stop: 01/20/21 16:59 Last Admin: 01/21/21 04:48 Dose: Not Given Documented by: Cefazolin Sodium/Dextrose 2 gm (/ Premix) 50 mls @ 100 mls/hr IV ONETIME STA Stop: 01/21/21 07:50 Sodium Chloride (Normal Saline) Confirm Administered Dose 20 mls @ as directed .ROUTE .STK-MED ONE Stop: 01/21/21 07:32 Cefazolin Sodium/Dextrose 1 gm (/ Premix) 50 mls @ 100 mls/hr IV Q8H THAO Stop: 01/22/21 08:59 Last Admin: 01/22/21 01:18 Dose: Not Given Documented by: Lidocaine HCl (Lidocaine 1% 50 Ml Mdv) 50 ml INJECT ONETIME PRN PRN Reason: Laceration repair Lidocaine HCl (Lidocaine 1% 5 Ml Sdv) Confirm Administered Dose 5 ml .ROUTE .ST-MED ONE Stop: 01/21/21 07:31 Metoprolol Tartrate (Metoprolol Tartrate 5 Mg/5 Ml Sdv) Confirm Administered Dose 5 mg .ROUTE .[facility]-MED ONE Stop: 01/21/21 10:16 Miscellaneous Medication (Phenylephrine Hcl In 0.9% Nacl 1 Mg/10 Ml Syringe) Confirm Administered Dose 1 mg .ROUTE .[facility]-MED ONE Stop: 01/21/21 08:17 Misoprostol (Misoprostol 200 Mcg Tab) 200 mcg PO ONETIME PRN PRN Reason: Post Hemorrhage Misoprostol (Misoprostol 25 Mcg (1/4 Of 100 Mcg) Tab) 25 mcg VAG Q4H PRN PRN Reason: Cervical Ripening Last Admin: 01/19/21 14:52 Dose: 25 mcg Documented by: Nalbuphine HCl (Nalbuphine 10 Mg/1 Ml Vial) 10 mg IVPUSH Q1H PRN PRN Reason: Pain (severe 7-10) Ondansetron HCl (Ondansetron 4 Mg/2 Ml Sdv) Confirm Administered Dose 4 mg .ROUTE .[facility]-MED ONE Stop: 01/21/21 02:25 Last Admin: 01/21/21 02:27 Dose: 4 mg Documented by: Ondansetron HCl (Ondansetron 4 Mg/2 Ml Sdv) Confirm Administered Dose 4 mg .ROUTE .[facility]-MED ONE Stop: 01/21/21 07:31 Oxytocin (Oxytocin 10 Units/1 Ml Sdv) 10 unit IM ONETIME ONE Stop: 01/21/21 02:11 Last Admin: 01/21/21 02:10 Dose: 10 unit Documented by: Oxytocin (Oxytocin 10 Units/1 Ml Sdv) Confirm Administered Dose 30 unit .ROUTE .ST-MED ONE Stop: 01/21/21 08:55 Propofol (Propofol 200 Mg/20 Ml Sdv) Confirm Administered Dose 200 mg .ROUTE .[facility]-MED ONE Stop: 01/21/21 07:31 Rocuronium [place] (Rocuronium [place] 50 Mg/5 Ml Syringe) Confirm Administered Dose 50 mg .ROUTE .STK-MED ONE Stop: 01/21/21 07:31 Sterile Water (Water For Irrigation,Sterile 1,000 Ml Container) 1,000 ml IRR ASDIRECTED PRN PRN Reason: delivery Succinylcholine Chloride (Succinylcholine Chloride 200 Mg/10 Ml Syr) Confirm Administered Dose 200 mg .ROUTE .STK-MED ONE Stop: 01/21/21 07:31 Sugammadex Sodium (Sugammadex Sodium 200 Mg/2 Ml Vial) Confirm Administered Dose 200 mg .ROUTE .STK-MED ONE Stop: 01/21/21 07:31 Terbutaline Sulfate (Terbutaline 1 Mg/Ml Sdv) 0.25 mg SUBCUT ASDIRECTED PRN PRN Reason: Tacysystole Tranexamic Acid (Tranexamic Acid 1,000 Mg/10 Ml Amp) Confirm Administered Dose 1,000 mg .ROUTE .STK-MED ONE Stop: 01/21/21 08:41 - Infant Interaction Support Person: - Recovery Exam Bladder Status: Indwelling Catheter in Place - Problem List & Annotations (1) Vaginal delivery SNOMED Code(s): 611177876 Code(s): O80 - ENCOUNTER FOR FULL-TERM UNCOMPLICATED DELIVERY Status: Acute Current Visit: Yes (2) hemorrhage SNOMED Code(s): 02799935 Code(s): O72.1 - OTHER IMMEDIATE HEMORRHAGE Status: Acute Current Visit: Yes Qualifiers: hemorrhage type: third-stage Qualified Code(s): O72.0 - Third- stage hemorrhage - Problem List Review Problem List Initiated/Reviewed/Updated: Yes - My Orders Last 24 Hours: My Active Orders 01/22/21 03:00 Communication Order [RC] ROUTINE 01/22/21 13:00 CBC WITH AUTO DIFF [HEME] Routine - Assessment Assessment:: 35y P1041 s/p PPD1 , * PPH , * s/p EUA , Placement of bakri balloon * aneamia * Elevated WBC count * Elevated BPs PIH labs normal , Normal PCR Patient does not have IV line , multiple attempts, IJ line not working any longer. Patient does not want a Central venous line , she will prefer to be transferred to [place] if she needs this . Informed her of the importance of IV assess due to multiple factors. I called ER doctor who initially agreed to put a line , but said general surgery will be able to put a line if needed. Patient informed and she declines for now since she feels very good - Plan Plan:: Pain control as needed Will switch Antibiotics to oral Monitor pad counts Repeat CBC @ 1pm Will monitor vital signs especially BP for severe range , if BP severe range she may need IM Mag with oral antihypertensives Oral Lasix 20mg given for edema
[2021-01-22] MEDS ORDERED: Enoxaparin 40 MG/0.4 ML Syringe SUBCUT ONE (14:17)
[2021-01-22] MEDS: Iron Polysaccharides Complex 150 MG Cap PO SCH (14:57)
--- NOTE | 2021-01-22 16:14 | PCM.SN.2 ---
- Free Text/Narrative Note: Patient CBC redrawn CBC: 20 <6.9/20> 185 , stable from previous , no bleeding , normal urine output VSS: 103/66 , HR 90s- 100s I informed patient and spouse and recommended blood transfusion , However they will need a central venous line for access . Patient state that she is asymptomatic and feels goods and will like to defer blood for now . She will prefer to wait till tomorrow and have us repeat the CBC at this time. She understands the risk of not having an intravenous access if she suddenly starts to bleed again. Risk include fast decompensation possible . She feels okay now and will let us know if she starts to bleed again. she has been stable since after procedure yesterday. Time Documentation
[2021-01-22] MEDS ORDERED: Amoxicillin/Clavulanate K 875-125 MG Tab PO SCH (21:00)
[2021-01-23] MEDS: Benzocaine/Menthol 20%-0.5% Spray 78 GM Cannister TOP PRN ×2 (06:56→18:37)
[2021-01-23] MEDS: Witch Hazel Medicated Pads 40/Jar TOP PRN ×2 (06:57→18:36)
[2021-01-23] MEDS ORDERED: Sodium Chloride 0.9% 10 ML Syringe FLUSH PRN (09:03)
[2021-01-23] MEDS ORDERED: Sodium Chloride 0.9% 10 ML SDV IV PRN (09:03)
[2021-01-23] MEDS ORDERED: Sodium Chloride 0.9% 2.5 ML Syringe FLUSH PRN (09:03)
--- NOTE | 2021-01-23 09:03 | PCM.PNPP ---
- General Info Date of Service: 01/23/21 Functional Status: Reports: Pain Controlled, Tolerating Diet, Ambulating, Urinating - Review of Systems General: Reports: Fatigue. Denies: Fever, Weakness Pulmonary: Denies: Shortness of Breath Cardiovascular: Reports: Lightheadedness (mild at times). Denies: Chest Pain, Palpitations Gastrointestinal: Reports: No Symptoms Genitourinary: Denies: Flank Pain Musculoskeletal: Reports: No Symptoms Skin: Reports: No Symptoms Neurological: Reports: Dizziness (mild at times). Denies: Headache, Paresthesia Psychiatric: Reports: No Symptoms - General Info Date of Service: 01/23/21 - Patient Data Vital Signs - Most Recent: Last Vital Signs Temp 36.1 C 01/23/21 04:15 Pulse 104 H 01/23/21 06:30 Resp 16 01/23/21 04:15 BP 108/64 01/23/21 06:30 Pulse Ox 100 01/23/21 04:15 Weight - Most Recent: 115.394 kg I&O - Last 24 Hours: Intake & Output 01/22/21 01/23/21 01/23/21 22:59 06:59 14:59 Output Total 3850 6650 Balance -3850 -6650 Lab Results - Last 24 Hours: Laboratory Results - last 24 hr 01/22/21 01/23/21 Range/Units 13:12 05:52 WBC 20.25 H 15.28 H (4.0-11.0) K/uL RBC 2.38 L 2.39 L (4.30-5.90) M/uL Hgb 6.9 L 6.7 L (12.0-16.0) g/dL Hct 20.4 L 20.3 L (36.0-46.0) % MCV 85.7 84.9 (80.0-98.0) fL MCH 29.0 28.0 (27.0-32.0) pg MCHC 33.8 33.0 (31.0-37.0) g/dL RDW Std Deviation 50.6 50.5 (28.0-62.0) fl RDW Coeff of Shahab 16 H 16 H (11.0-15.0) % Plt Count 185 197 (150-400) K/uL MPV 11.80 11.00 (7.40-12.00) fL Neut % (Auto) 75.6 72.3 (48.0-80.0) % Lymph % (Auto) 17.2 21.7 (16.0-40.0) % [place] % (Auto) 7.0 5.4 (0.0-15.0) % Eos % (Auto) 0.1 0.5 (0.0-7.0) % Baso % (Auto) 0.1 0.1 (0.0-1.5) % Neut # (Auto) 15.3 H 11.0 H (1.4-5.7) K/uL Lymph # (Auto) 3.5 H 3.3 H (0.6-2.4) K/uL [place] # (Auto) 1.4 H 0.8 (0.0-0.8) K/uL Eos # (Auto) 0.0 0.1 (0.0-0.7) K/uL Baso # (Auto) 0.0 0.0 (0.0-0.1) K/uL Nucleated RBC % 0.0 0.4 /100WBC Nucleated RBCs # 0 0 K/uL Med Orders - Current: Current Medications Acetaminophen (Acetaminophen 500 Mg Tab) 500 mg PO Q4H PRN PRN Reason: Pain (mild 1-3) Acetaminophen (Acetaminophen 500 Mg Tab) 1,000 mg PO Q4H PRN PRN Reason: Pain (mild 1-3) Last Admin: 01/21/21 04:39 Dose: 1,000 mg Documented by: Albuterol (Albuterol 0.083% 2.5 Mg/3 Ml Neb Soln) 2.5 mg NEB ONETIME PRN PRN Reason: Wheezing Benzocaine/Menthol (Benzocaine/Menthol 20%-0.5% [place] 78 Gm Cannister) 78 gm TOP ASDIRECTED PRN PRN Reason: Perineal Comfort Measure Last Admin: 01/23/21 06:56 Dose: 1 spray Documented by: Bisacodyl (Bisacodyl 10 Mg Supp) 10 mg RECTAL ONETIME PRN PRN Reason: Constipation Docusate Sodium (Docusate Sodium 100 Mg Cap) 100 mg PO Q12H PRN PRN Reason: Constipation Last Admin: 01/22/21 11:32 Dose: 100 mg Documented by: Droperidol (Droperidol 5 Mg/2 Ml Sdv) 0.625 mg IVPUSH ONETIME PRN PRN Reason: Nausea/Vomiting Emollient Ointment (Lanolin 100% Cream 7 Gm Tube) 0 gm TOP ASDIRECTED PRN PRN Reason: Sore Nipples Ephedrine Sulfate (Ephedrine 50 Mg/Ml Sdv) 10 mg IVPUSH Q1M PRN PRN Reason: Hypotension Fentanyl (Fentanyl 100 Mcg/2 Ml Sdv) 50 mcg IVPUSH Q5M PRN PRN Reason: Pain (mild 1-3) Hydromorphone HCl (Hydromorphone 1 Mg/Ml Syringe) 1 mg IVPUSH Q10M PRN PRN Reason: Pain (moderate 4-6) Ibuprofen (Ibuprofen 400 Mg Tab) 400 mg PO Q4H PRN PRN Reason: Pain (mild 1-3) Ibuprofen (Ibuprofen 800 Mg Tab) 800 mg PO Q6H PRN PRN Reason: Cramping Metoclopramide HCl (Metoclopramide 10 Mg/2 Ml Sdv) 10 mg IVPUSH ONETIME PRN PRN Reason: Nausea/Vomiting Miscellaneous Medication (Phenylephrine Hcl In 0.9% Nacl 1 Mg/10 Ml Syringe) 0.1 mg IVPUSH Q1M PRN PRN Reason: Hypotension Morphine Sulfate (Morphine 2 Mg/Ml Syringe) 2 mg IVPUSH Q10M PRN PRN Reason: Pain (severe 7-10) Naloxone HCl (Naloxone 0.4 Mg/Ml Sdv) 0.1 mg IVPUSH ASDIRECTED PRN PRN Reason: Respiratory Depression Ondansetron HCl (Ondansetron 4 Mg/2 Ml Sdv) 4 mg IVPUSH ONETIME PRN PRN Reason: Nausea/Vomiting Oxycodone HCl (Oxycodone 5 Mg Tab) 5 mg PO Q2H PRN PRN Reason: Pain (severe 7-10) Polysaccharide Iron Complex (Iron Polysaccharides Complex 150 Mg Cap) 150 mg PO DAILY [facility] Last Admin: 01/22/21 14:57 Dose: 150 mg Documented by: Ropivacaine (Ropivacaine 0.2% 2mg/Ml 200 Ml Bag) 400 mg EPIDUR ASDIRECTED THAO Sodium Chloride (Sodium Chloride 0.9% 10 Ml Syringe) 10 ml FLUSH ASDIRECTED PRN PRN Reason: Keep Vein Open Sodium Chloride (Sodium Chloride 0.9% 2.5 Ml Syringe) 2.5 ml FLUSH ASDIRECTED PRN PRN Reason: Keep Vein Open Sodium Chloride (Sodium Chloride 0.9% 10 Ml Sdv) 10 ml IV ASDIRECTED PRN PRN Reason: IV Use Sodium Chloride (Sodium Chloride 0.9% 10 Ml Syringe) 10 ml FLUSH ASDIRECTED PRN PRN Reason: Keep Vein Open Sodium Chloride (Sodium Chloride 0.9% 2.5 Ml Syringe) 2.5 ml FLUSH ASDIRECTED PRN PRN Reason: Keep Vein Open Sodium Chloride (Sodium Chloride 0.9% 10 Ml Sdv) 10 ml IV ASDIRECTED PRN PRN Reason: IV Use Witch Ysabel (Witch Ysabel Medicated Pads 40/Jar) 1 pad TOP ASDIRECTED PRN PRN Reason: comfort care Last Admin: 01/23/21 06:57 Dose: 1 pad Documented by: Discontinued Medications Amoxicillin/Clavulanate Potassium (Amoxicillin/Clavulanate K 875-125 Mg Tab) 1 tab PO Q12HR THAO Amoxicillin/Clavulanate Potassium (Amoxicillin/Clavulanate K 875-125 Mg Tab) 1 tab PO ONETIME ONE Stop: 01/22/21 11:35 Last Admin: 01/22/21 11:51 Dose: 1 tab Documented by: Bupivacaine HCl (Bupivacaine 0.25% 10 Ml Sdv) Confirm Administered Dose 10 ml .ROUTE .STK-MED ONE Stop: 01/20/21 16:59 Last Admin: 01/21/21 04:48 Dose: Not Given Documented by: Butorphanol Tartrate (Butorphanol 1 Mg/Ml Sdv) 1 mg IVPUSH Q1H PRN PRN Reason: Pain (severe 7-10) Calcium Chloride (Calcium Chloride 10% 1 Gm/10 Ml Syringe) Confirm Administered Dose 1 gm .ROUTE .STK-MED ONE Stop: 01/21/21 07:39 Carboprost Tromethamine (Carboprost Tromethamine 250 Mcg/1 Ml Amp) 250 mcg IM ASDIRECTED PRN PRN Reason: Post Hemorrhage Last Admin: 01/21/21 03:58 Dose: 250 mcg Documented by: Cefazolin Sodium (Cefazolin 1 Gm Vial) Confirm Administered Dose 2 gm .ROUTE .STK-MED ONE Stop: 01/21/21 08:29 Cefazolin Sodium (Cefazolin 1 Gm Vial) 1 gm IVPUSH ONETIME ONE Stop: 01/22/21 01:01 Last Admin: 01/22/21 01:00 Dose: 1 gm Documented by: Dexamethasone (Dexamethasone 4 Mg/Ml 5 Ml Mdv) Confirm Administered Dose 20 mg .ROUTE .STK-MED ONE Stop: 01/21/21 07:31 Dexmedetomidine HCl (Dexmedetomidine 200 Mcg/2 Ml Sdv) Confirm Administered Dose 200 mcg .ROUTE .STK-MED ONE Stop: 01/21/21 07:32 Dinoprostone (Dinoprostone 10 Mg Insert) 10 mg VAG ONETIME ONE Stop: 01/19/21 19:01 Last Admin: 01/19/21 20:22 Dose: 10 mg Documented by: Enoxaparin Sodium (Enoxaparin 40 Mg/0.4 Ml Syringe) 40 mg SUBCUT ONETIME ONE Stop: 01/22/21 14:18 Last Admin: 01/22/21 14:57 Dose: 40 mg Documented by: Fentanyl (Fentanyl 100 Mcg/2 Ml Sdv) Confirm Administered Dose 100 mcg .ROUTE .STK-MED ONE Stop: 01/21/21 07:31 Furosemide (Furosemide 20 Mg Tab) 20 mg PO ONETIME ONE Stop: 01/22/21 11:01 Last Admin: 01/22/21 11:32 Dose: 20 mg Documented by: Furosemide (Furosemide 20 Mg Tab) 20 mg PO ONETIME ONE Stop: 01/22/21 21:01 Last Admin: 01/22/21 20:58 Dose: 20 mg Documented by: Oxytocin/Sodium Chloride (Oxytocin 30 Unit In Ns 0.9% 500 Ml Premix) 30 unit in 500 mls @ 999 mls/hr IV TITRATE THAO Last Infusion: 01/21/21 02:00 Dose: 999 mls/hr Documented by: Tranexamic Acid 1,000 mg/ (Sodium Chloride) 110 mls @ 660 mls/hr IV ONETIME PRN PRN Reason: Bleeding Last Admin: 01/21/21 02:10 Dose: 660 mls/hr Documented by: Oxytocin/Sodium Chloride (Oxytocin 30 Unit In Ns 0.9% 500 Ml Premix) 30 unit in 500 mls @ 2 mls/hr IV TITRATE THAO; Protocol Last Titration: 01/21/21 01:05 Dose: 999 munits/min, 999 mls/hr Documented by: Ampicillin Sodium 2 gm/ Sodium (Chloride) 100 mls @ 200 mls/hr IV ONETIME ONE Stop: 01/19/21 14:59 Last Admin: 01/19/21 14:43 Dose: 200 mls/hr Documented by: Ampicillin Sodium 1 gm/ Sodium (Chloride) 50 mls @ 100 mls/hr IV Q4H [facility] Last Admin: 01/21/21 04:43 Dose: Not Given Documented by: Lactated Ringer's (Ringers, Lactated) 1,000 mls @ 150 mls/hr IV ASDIRECTED THAO Last Admin: 01/21/21 04:24 Dose: 150 mls/hr Documented by: Ropivacaine (Naropin 0.2%) Confirm Administered Dose 200 mls @ as directed .ROUTE .STK-MED ONE Stop: 01/20/21 16:59 Last Admin: 01/21/21 04:48 Dose: Not Given Documented by: Cefazolin Sodium/Dextrose 2 gm (/ Premix) 50 mls @ 100 mls/hr IV ONETIME STA Stop: 01/21/21 07:50 Sodium Chloride (Normal Saline) Confirm Administered Dose 20 mls @ as directed .ROUTE .STK-MED ONE Stop: 01/21/21 07:32 Cefazolin Sodium/Dextrose 1 gm (/ Premix) 50 mls @ 100 mls/hr IV Q8H [facility] Stop: 01/22/21 08:59 Last Admin: 01/22/21 15:03 Dose: Not Given Documented by: Lidocaine HCl (Lidocaine 1% 50 Ml Mdv) 50 ml INJECT ONETIME PRN PRN Reason: Laceration repair Lidocaine HCl (Lidocaine 1% 5 Ml Sdv) Confirm Administered Dose 5 ml .ROUTE .STK-MED ONE Stop: 01/21/21 07:31 Methylergonovine Maleate (Methylergonovine 0.2 Mg/1 Ml Amp) 0.2 mg IM ASDIRECTED PRN PRN Reason: Post Hemorrhage Last Admin: 01/21/21 02:02 Dose: 0.2 mg Documented by: Metoprolol Tartrate (Metoprolol Tartrate 5 Mg/5 Ml Sdv) Confirm Administered Dose 5 mg .ROUTE .STK-MED ONE Stop: 01/21/21 10:16 Miscellaneous Medication (Phenylephrine Hcl In 0.9% Nacl 1 Mg/10 Ml Syringe) Confirm Administered Dose 1 mg .ROUTE .STK-MED ONE Stop: 01/21/21 08:17 Misoprostol (Misoprostol 200 Mcg Tab) 200 mcg PO ONETIME PRN PRN Reason: Post Hemorrhage Misoprostol (Misoprostol 25 Mcg (1/4 Of 100 Mcg) Tab) 25 mcg VAG Q4H PRN PRN Reason: Cervical Ripening Last Admin: 01/19/21 14:52 Dose: 25 mcg Documented by: Nalbuphine HCl (Nalbuphine 10 Mg/1 Ml Vial) 10 mg IVPUSH Q1H PRN PRN Reason: Pain (severe 7-10) Ondansetron HCl (Ondansetron 4 Mg/2 Ml Sdv) Confirm Administered Dose 4 mg .ROUTE .STK-MED ONE Stop: 01/21/21 02:25 Last Admin: 01/21/21 02:27 Dose: 4 mg Documented by: Ondansetron HCl (Ondansetron 4 Mg/2 Ml Sdv) Confirm Administered Dose 4 mg .ROUTE .STK-MED ONE Stop: 01/21/21 07:31 Oxytocin (Oxytocin 10 Units/1 Ml Sdv) 10 unit IM ONETIME ONE Stop: 01/21/21 02:11 Last Admin: 01/21/21 02:10 Dose: 10 unit Documented by: Oxytocin (Oxytocin 10 Units/1 Ml Sdv) Confirm Administered Dose 30 unit .ROUTE .STK-MED ONE Stop: 01/21/21 08:55 Propofol (Propofol 200 Mg/20 Ml Sdv) Confirm Administered Dose 200 mg .ROUTE .STK-MED ONE Stop: 01/21/21 07:31 Rocuronium [place] (Rocuronium [place] 50 Mg/5 Ml Syringe) Confirm Administered Dose 50 mg .ROUTE .STK-MED ONE Stop: 01/21/21 07:31 Sterile Water (Water For Irrigation,Sterile 1,000 Ml Container) 1,000 ml IRR ASDIRECTED PRN PRN Reason: delivery Succinylcholine Chloride (Succinylcholine Chloride 200 Mg/10 Ml Syr) Confirm Administered Dose 200 mg .ROUTE .STK-MED ONE Stop: 01/21/21 07:31 Sugammadex Sodium (Sugammadex Sodium 200 Mg/2 Ml Vial) Confirm Administered Dose 200 mg .ROUTE .STK-MED ONE Stop: 01/21/21 07:31 Terbutaline Sulfate (Terbutaline 1 Mg/Ml Sdv) 0.25 mg SUBCUT ASDIRECTED PRN PRN Reason: Tacysystole Tranexamic Acid (Tranexamic Acid 1,000 Mg/10 Ml Amp) Confirm Administered Dose 1,000 mg .ROUTE .STK-MED ONE Stop: 01/21/21 08:41 - Interaction Support Person: - Recovery Exam Fundal Tone: Firm Fundal Level: 1 Fingerbreadths Below Umbilicus Fundal Placement: Midline Lochia Amount: Scant Lochia Color: Rubra/Red Perineum Description: Intact, Minimal Bruising/Swelling Episiotomy/Laceration: Approximated Bladder Status: Nonpalpable, Indwelling Catheter in Place Urinary Elimination: Indwelling Catheter - Exam General: Alert, Oriented Lungs: Normal Respiratory Effort Cardiovascular: Regular Rhythm, Tachycardia GI/Abdominal Exam: Normal Bowel Sounds Extremities: Pedal Edema (1+). No: Samantha's Sign Skin: Warm, Dry, Intact, Ecchymosis (across right forearm from multiple attempts at iv insertion) Neurological: No New Focal Deficit Psy/Mental Status: Alert, Normal Affect, Normal Mood - Problem List & Annotations (1) hemorrhage SNOMED Code(s): 86721187 Code(s): O72.1 - OTHER IMMEDIATE HEMORRHAGE Status: Acute Current Visit: Yes Qualifiers: hemorrhage type: third-stage Qualified Code(s): O72.0 - Third- stage hemorrhage (2) Vaginal delivery SNOMED Code(s): 616460871 Code(s): O80 - ENCOUNTER FOR FULL-TERM UNCOMPLICATED DELIVERY Status: Acute Current Visit: Yes (3) Anemia affecting SNOMED Code(s): 49819497 Code(s): O99.019 - ANEMIA COMPLICATING , UNSPECIFIED TRIMESTER Status: Acute Current Visit: Yes - Problem List Review Problem List Initiated/Reviewed/Updated: Yes - Assessment Assessment:: 35y P1041 s/p PPD2 , * PPH , * s/p EUA , Placement of bakri balloon * anemia * - Plan Plan:: Patient has mild light headedness and dizziness at times, otherwise denies headache is feeling pretty well overall. Lochia is minimal. White count is down to 15. Hemoglobin stable, but still 6.7. Have advised at attempt for periph eral iv insertion today now that has diuresed and had a day without stimulation. Would advise another 2 U PRBC. Patient is comfortable with this plan of care. Otherwise, once receives blood transfusion is otherwise stable to go home. Discharge instructions reviewed. Will continue oral augmentin for total of one week.
[2021-01-23] MEDS: Iron Polysaccharides Complex 150 MG Cap PO SCH (09:14)
[2021-01-23] MEDS: Acetaminophen 500 MG Tab PO PRN ×2 (09:15→18:38)
--- NOTE | 2021-01-25 08:30 | US ---
INDICATION: hemorrhage. TECHNIQUE: COMPARISON: None. FINDINGS: IMPRESSION: Dictated by Jassi Álvarez MD @ 01/25/2021 8:30:08 AM (Electronically Signed)
== END 2021-01-23 20:35 | disposition home or self-care (01) | DRG 542 ==
LOC: MW.OBCHECK 12:46 → MW.OB 12:48 → OBSVTOIN 01-21 00:54 → MW.OB 01-21 18:49
PROVIDERS: ADMIT Obstetrics & Gynecology; ATTEND Obstetrics & Gynecology
PROC: 10E0XZZ Delivery of Products of Conception, External Approach (ICD-10-PCS; principal; 2021-01-21)
PROC: 10907ZC Drainage of Amniotic Fluid, Therapeutic from Products of Conception, Via Natural or Artificial Opening (ICD-10-PCS; 2021-01-21)
PROC: 3E0P7VZ Introduction of Hormone into Female Reproductive, Via Natural or Artificial Opening (ICD-10-PCS; 2021-01-21)
PROC: 0KQM0ZZ Repair Perineum Muscle, Open Approach (ICD-10-PCS; 2021-01-21)
PROC: 3E0R3BZ Introduction of Anesthetic Agent into Spinal Canal, Percutaneous Approach (ICD-10-PCS; 2021-01-21)
PROC: 0W3R7ZZ Control Bleeding in Genitourinary Tract, Via Natural or Artificial Opening (ICD-10-PCS; 2021-01-21)
PROC: 0KQM0ZZ Repair Perineum Muscle, Open Approach (ICD-10-PCS; 2021-01-21)
DX: O99.824 Streptococcus B carrier state complicating childbirth (principal); Z3A.38 38 weeks gestation of pregnancy; Z37.0 Single live birth; O41.03X0 Oligohydramnios, third trimester, not applicable or unspecified; O99.214 Obesity complicating childbirth; O72.1 Other immediate postpartum hemorrhage; O70.1 Second degree perineal laceration during delivery; Z20.822 Contact with and (suspected) exposure to COVID-19
CPT/HCPCS: 00940; 01967; 36415; 36430; 51702; 59000; 59025; 59200; 59409; 59414; 59899; 76857; 76857-26; 76998; 76998-26; 80053; 81001; 82570; 82803; 83615; 84156; 84550; 85014; 85018; 85025; 85027; 85384; 85610; 85730; 86592; 86850; 86900; 86901; 86920; 86921; 86922; A9270-GY; J0290; J0330; J0690; J1100; J1650; J2210; J2370; J2405; J2590; J2704; J2795; J3010; J3490; J7030; J7120; P9016; P9017; U0002

== ENCOUNTER 2021-02-27 13:41 | Emergency (ER) | payer BC ==
[2021-02-27] MEDS ORDERED: Sodium Chloride 0.9% 10 ML Syringe FLUSH PRN (13:53)
[2021-02-27] MEDS ORDERED: Sodium Chloride 0.9% 2.5 ML Syringe FLUSH PRN (13:53)
[2021-02-27] MEDS ORDERED: Lactated Ringers 1,000 ML IV ONE (14:12)
--- NOTE | 2021-02-27 14:15 | EDM.PDOC ---
ED HPI GENERAL MEDICAL PROBLEM - General Chief Complaint: COMPENSATOR Problem Stated Complaint: SEVERE VAGINAL BLEEDING W/SEVERE CLOTTING Time Seen by Provider: 02/27/21 13:50 - History of Present Illness INITIAL COMMENTS - FREE TEXT/NARRATIVE: 35-year-old female G4, P1 who had a vaginal delivery just over 1 month ago which was complicated by hemorrhage who is presenting with vaginal bleeding. Patient had significant hemorrhage after the delivery she needed a blood transfusion her bleeding was quite minimal when she was discharged from the hospital. She has continued to have some degree of daily bleeding but it has been quite minimal she has needed to change her pad 2-3 times per day. Today she had a sudden worsening of her vaginal bleeding with a large production of clots. This was associated with lightheadedness and cramping lower abdominal pain. No chest pain or shortness of breath no syncope. Patient has gone through multiple pads in the last hour. Uterine Pain Score (Numeric/FACES): 6 - Related Data Allergies Allergy/AdvReac Type Severity Reaction Status Date / Time No Known Allergies Allergy Verified 02/27/21 13:52 Home Meds: Home Meds Ferrous Sulfate, Dried [Iron] 02/27/21 [History] Past Medical History - Past Health History Medical/Surgical History: Denies Medical/Surgical History COMPENSATOR History: Reports: , Other (See Below) Other COMPENSATOR History: IVF, post delivery hemorrhage - Infectious Disease History Infectious Disease History: Reports: None Social & Family History - Family History Family Medical History: No Pertinent Family History - Tobacco Use Tobacco Use Status *Q: Never Tobacco User - Caffeine Use Caffeine Use: Reports: None - Recreational Drug Use Recreational Drug Use: No ED ROS GENERAL - Review of Systems Review Of Systems: See Below Free Text/Narrative/Comment: General: No fever. ENT: No sore throat. Neck: No neck stiffness. Respiratory: No shortness of breath. Cardiac: No chest pain. Gastrointestinal: No nausea or vomiting : per HPI Musculoskeletal: No myalgias/arthralgias. Neurologic: No headache. ED EXAM, GENERAL - Physical Exam Exam: See Below Free Text/Narrative:: General Appearance: No acute distress, appears comfortable Skin: No rash HEENT: Normocephalic/atraumatic, sclera anicteric, mucous membranes moist Neck: Normal range of motion Chest and Lungs: Bilateral breath sounds, clear to auscultation Cardiovascular: Regular rate and rhythm Abdomen: Soft, non-tender Musculoskeletal: No edema or tenderness Neurologic: Awake, alert, no obvious deficits, moving all extremities Psychiatric: Appropriate, cooperative Course - Vital Signs Last Recorded V/S: Last Vital Signs Temp 96.1 F L 02/27/21 13:55 Pulse 88 02/27/21 16:10 Resp 18 02/27/21 13:55 BP 122/60 02/27/21 14:29 Pulse Ox 100 02/27/21 16:10 - Orders/Labs/Meds Orders: Active Orders 24 hr Category Date Time Status Sodium Chloride 0.9% [Saline Flush] Med 02/27/21 13:53 Active 10 ml FLUSH ASDIRECTED PRN Sodium Chloride 0.9% [Saline Flush] Med 02/27/21 13:53 Active 2.5 ml FLUSH ASDIRECTED PRN Saline Lock Insert [OM.PC] Stat Oth 02/27/21 13:53 Ordered Medication Orders Sodium Chloride (Sodium Chloride 0.9% 10 Ml Syringe) 10 ml FLUSH ASDIRECTED PRN PRN Reason: Keep Vein Open Last Admin: 02/27/21 14:08 Dose: 10 ml Documented by: BLAYNE Sodium Chloride (Sodium Chloride 0.9% 2.5 Ml Syringe) 2.5 ml FLUSH ASDIRECTED PRN PRN Reason: Keep Vein Open Last Admin: 02/27/21 14:08 Dose: 2.5 ml Documented by: BLAYNE Labs: Laboratory Tests 02/27/21 02/27/21 02/27/21 Range/Units 14:31 14:31 14:31 WBC 12.15 H (4.0-11.0) K/uL RBC 3.75 L (4.30-5.90) M/uL Hgb 10.3 L (12.0-16.0) g/dL Hct 31.7 L (36.0-46.0) % MCV 84.5 (80.0-98.0) fL MCH 27.5 (27.0-32.0) pg MCHC 32.5 (31.0-37.0) g/dL RDW Std Deviation 44.7 (28.0-62.0) fl RDW Coeff of Shahab 14 (11.0-15.0) % Plt Count 323 (150-400) K/uL MPV 10.40 (7.40-12.00) fL Neut % (Auto) 68.8 (48.0-80.0) % Lymph % (Auto) 26.0 (16.0-40.0) % Keith % (Auto) 4.5 (0.0-15.0) % Eos % (Auto) 0.4 (0.0-7.0) % Baso % (Auto) 0.3 (0.0-1.5) % Neut # (Auto) 8.4 H (1.4-5.7) K/uL Lymph # (Auto) 3.2 H (0.6-2.4) K/uL Keith # (Auto) 0.6 (0.0-0.8) K/uL Eos # (Auto) 0.1 (0.0-0.7) K/uL Baso # (Auto) 0.0 (0.0-0.1) K/uL Nucleated RBC % 0.0 /100WBC Nucleated RBCs # 0 K/uL Sodium 138 (136-145) mmol/L Potassium 4.6 (3.5-5.1) mmol/L Chloride 105 (98-107) mmol/L Carbon Dioxide 25.6 (21.0-32.0) mmol/L BUN 13 (7.0-18.0) mg/dL Creatinine 0.8 (0.6-1.0) mg/dL Est Cr Clr Drug Dosing 91.01 mL/min Estimated GFR (MDRD) > 60.0 ml/min Glucose 115 H (74-106) mg/dL Calcium 8.1 L (8.5-10.1) mg/dL Total Bilirubin 0.2 (0.2-1.0) mg/dL AST 30 (15-37) IU/L ALT 38 (14-63) IU/L Alkaline Phosphatase 116 (46-116) U/L Total Protein 6.4 (6.4-8.2) g/dL Albumin 2.8 L (3.4-5.0) g/dL Globulin 3.6 (2.6-4.0) g/dL Albumin/Globulin Ratio 0.8 L (0.9-1.6) HCG, Quant 6.0 mIU/mL Meds: Medications Generic Name Dose Route Start Last Admin Trade Name Micahq PRN Reason Stop Dose Admin Sodium Chloride 10 ml 02/27/21 13:53 02/27/21 14:08 Sodium Chloride 0.9% 10 Ml Syringe FLUSH 10 ml ASDIRECTED PRN Administration Keep Vein Open Sodium Chloride 2.5 ml 02/27/21 13:53 02/27/21 14:08 Sodium Chloride 0.9% 2.5 Ml Syringe FLUSH 2.5 ml ASDIRECTED PRN Administration Keep Vein Open Discontinued Medications Generic Name Dose Route Start Last Admin Trade Name Micahq PRN Reason Stop Dose Admin Lactated Ringer's 1,000 mls @ 999 mls/hr 02/27/21 14:12 02/27/21 14:24 Ringers, Lactated IV 02/27/21 15:12 999 mls/hr .BOLUS ONE Administration Tranexamic Acid 1,000 mg/ 110 mls @ 660 mls/hr 02/27/21 15:48 02/27/21 16:10 Sodium Chloride IV 02/27/21 15:57 660 mls/hr ONETIME ONE Administration Departure - Departure Time of Disposition: 16:37 Disposition: Home, Self-Care 01 Condition: Good Clinical Impression: Menses regular with excessive bleeding - Discharge Information *PRESCRIPTION DRUG MONITORING PROGRAM REVIEWED*: Not Applicable *COPY OF PRESCRIPTION DRUG MONITORING REPORT IN PATIENT OLLIE: Not Applicable Instructions: Menorrhagia, [id number] Referrals: Katherin Lowe MD [Primary Care Provider] - Forms: ED Department Discharge Additional Instructions: Please be sure to reach out to Dr. Stone in the coming days to let her know how you are doing. If you continue to have trouble with heavy bleeding Dr. Stone may prescribe additional medication. If you soak more than 2 pads with blood in 1 hour for 2 hours or longer or if you have severe lightheadedness chest pain or shortness of breath in the setting of bleeding please call Dr. Stone right away or return to the ER. The following information is given to patients seen in the emergency department who are being discharged to home. This information is to outline your options for follow-up care. We provide all patients seen in our emergency department with a follow-up referral. The need for follow-up, as well as the timing and circumstances, are variable depending upon the specifics of your emergency department visit. If you don't have a primary care physician on staff, we will provide you with a referral. We always advise you to contact your personal physician following an emergency department visit to inform them of the circumstance of the visit and for follow-up with them and/or the need for any referrals to a consulting specialist. The emergency department will also refer you to a specialist when appropriate. This referral assures that you have the opportunity for follow-up care with a specialist. All of these measure are taken in an effort to provide you with optimal care, which includes your follow-up. Under all circumstances we always encourage you to contact your private physician who remains a resource for coordinating your care. When calling for follow-up care, please make the office aware that this follow-up is from your recent emergency room visit. If for any reason you are refused follow-up, please contact the [facility] Emergency Department at and asked to speak to the emergency department charge nurse. Sepsis Event Note (ED) - Evaluation Sepsis Screening Result: No Definite Risk - Focused Exam Vital Signs: Vital Signs Temp Pulse Resp BP Pulse Ox 02/27/21 16:10 88 100 02/27/21 15:40 88 100 02/27/21 14:29 82 122/60 98 02/27/21 14:09 100/57 L 02/27/21 13:55 96.1 F L 93 18 122/80 97 - My Orders Last 24 Hours: My Active Orders 02/27/21 13:53 Sodium Chloride 0.9% [Saline Flush] 10 ml FLUSH ASDIRECTED PRN Sodium Chloride 0.9% [Saline Flush] 2.5 ml FLUSH ASDIRECTED PRN Saline Lock Insert [OM.PC] Stat - Assessment/Plan Last 24 Hours: My Active Orders 02/27/21 13:53 Sodium Chloride 0.9% [Saline Flush] 10 ml FLUSH ASDIRECTED PRN Sodium Chloride 0.9% [Saline Flush] 2.5 ml FLUSH ASDIRECTED PRN Saline Lock Insert [OM.PC] Stat Assessment:: 35-year-old female presenting with sudden worsening of vaginal bleeding. Miscarriage is possible though the patient's most recent required IVF this is felt unlikely. No recent trauma. Recurrence of normal menses is a consideration. Labs including CBC, CMP are pending. Quantitative hCG as well. Retained products should be considered as well though patient has no signs of sepsis and that would make this unlikely this far after the . IV fluid is been given for relative hypotension. Pelvic exam is pending. 1445: Pelvic exam reveals a large fresh clot at the vaginal os once this had been removed the remainder of the vagina was essentially without blood. Patient elicitation of the cervix shows a closed cervix with an adherent blood clot coming out of the cervix. Direct visualization over the course of approximately 1 minute showed the adherent blood clot within the cervical os but no active hemorrhage or repooling of blood in the vaginal vault. 1550: Labs show hemoglobin of 10.3 which is slightly down from the outpatient blood work from earlier in the month. On reassessment at this time patient feels much better. Bleeding seems to have slowed. Vital signs are good. Pt discussed in full with Dr. Stone. She feels patient's presentation is consistent with the first time menstrual cycle which certainly follows. She recommends 1 gm of TXA and patient should continue her current progesterone control tablet for now. She can follow along with the patient and increase that dose if needed. Patient comfortable with this plan. She is ambulatory with a steady gait there is no lightheadedness syncope or near syncope. Will provide a TXA and I think after that patient will be appropriate for discharge.
[2021-02-27 15:10] LABS: BLOOD UREA NITROGEN,BUN 13 mg/dL (7.0-18.0); CARBON DIOXIDE,CO2 25.6 mmol/L (21.0-32.0); CHLORIDE,CL 105 mmol/L (98-107); GLUCOSE RANDOM 115 mg/dL (74-106); POTASSIUM,K 4.6 mmol/L (3.5-5.1); SODIUM,NA 138 mmol/L (136-145)
[2021-02-27] MEDS ORDERED: Tranexamic Acid 1,000 MG in Sodium Chloride 0.9% 100 ML IV ONE (15:48)
== END 2021-02-27 16:49 | disposition home or self-care (01) ==
LOC: MW.ED 13:41
DX: O72.2 Delayed and secondary postpartum hemorrhage (principal)
CPT/HCPCS: 36415; 80053; 84702; 85025; 96365; 99284; J7120

== ENCOUNTER 2021-04-10 17:40 | Emergency (ER) | payer BC ==
[2021-04-10] MEDS ORDERED: Ondansetron 4 MG Tab.DIS PO ONE (18:05)
--- NOTE | 2021-04-10 18:08 | PCM.EKG ---
#1 Interpretation Time: 18:07 EKG Interpretation Comments: EKG: NSR, nonspecific ST/T changes, Rate -98
== END 2021-04-10 19:08 | disposition left against medical advice (07) ==
LOC: MW.ED 17:40
DX: R11.10 Vomiting, unspecified (principal); R10.9 Unspecified abdominal pain; Z53.21 Procedure and treatment not carried out due to patient leaving prior to being seen by health care provider; Z20.822 Contact with and (suspected) exposure to COVID-19
CPT/HCPCS: 81001; 87086; 87635; 93005; A9270; U0002

== ENCOUNTER 2021-04-15 12:19 | Emergency (ER) | payer BC ==
[2021-04-15] MEDS ORDERED: Ondansetron 4 MG/2 ML SDV IVPUSH ONE ×2 (12:51→18:54)
[2021-04-15] MEDS ORDERED: Sodium Chloride 0.9% 2.5 ML Syringe FLUSH PRN (12:51)
[2021-04-15] MEDS ORDERED: Sodium Chloride 0.9% 1,000 ML IV ONE (12:51)
[2021-04-15] MEDS ORDERED: Sodium Chloride 0.9% 10 ML Syringe FLUSH PRN (12:51)
[2021-04-15] MEDS ORDERED: HYDROmorphone 1 MG/ML Syringe IVPUSH ONE ×2 (12:52→18:25)
--- NOTE | 2021-04-15 12:53 | EDM.PDOC ---
ED HPI GENERAL MEDICAL PROBLEM - General Chief Complaint: Abdominal Pain Stated Complaint: ABDOMINAL PAIN/THROWING UP Time Seen by Provider: 04/15/21 12:26 Source of Information: Reports: Patient History Limitations: Reports: No Limitations - History of Present Illness INITIAL COMMENTS - FREE TEXT/NARRATIVE: HISTORY AND PHYSICAL: History of present illness: The patient is a 35-year-old female who presents to the emergency department with complaints of abdominal pain for the last 7 days. Patient states that he is unable to eat when she does she has been vomiting for approximately 2 hours. Patient states that she has been taking hot sips of hot water and Gatorade. The patient complains of pain as epigastric shooting through to her back. The patient states she has had decreased urination because she is unable to eat or drink. The patient delivered a healthy 12 days ago. The patient is not breast-feeding and is formula feeding. Patient denies any fever, headache, change in vision, syncope or near syncope. Denies any chest pain, shortness of breath or cough. Denies any diarrhea, constipation or dysuria. Has not noted any blood in urine or stool. Review of systems: As per history of present illness and below otherwise all systems reviewed and negative. Past medical history: As per history of present illness and as reviewed below otherwise nonc ontributory. Surgical history: As per history of present illness and as reviewed below otherwise noncontributory. Social history: See social history for further information Family history: As per history of present illness and as reviewed below otherwise noncontributory. Physical exam: General: Well developed and well nourished. Alert and orientated x 3. Nontoxic in appearance and in no acute distress. Vital signs are stable and have been reviewed by me. Nursing notes were reviewed. HEENT: Atraumatic, normocephalic, pupils equal and reactive bilaterally, negative for conjunctival pallor or scleral icterus, mucous membranes moist, TMs normal bilaterally, throat clear, neck supple, nontender, trachea midline. No drooling or trismus noted. No meningeal signs. No hot potato voice noted. Lungs: Clear to auscultation bilaterally. No wheezes, rales, or rhonchi. Chest nontender. Normal work of breathing, no accessory muscles used. Heart: S1S2, regular rate and rhythm without overt murmur, gallops, or rubs. No JVD. No peripheral edema Abdomen: Soft, nondistended, epigastric tenderness. Normoactive bowel sounds. Negative for masses or costovertebral tenderness. Skin: Intact, warm, dry. No lesions or rashes noted. Hematologic: No petechiae or purpra. Mucosa appropriate color and normal nail bed color and refill. Extremities: Atraumatic, moves all extremities per self without difficulty or deficits, negative for cords or calf pain. Neurovascular unremarkable. Neuro: Awake, alert, oriented. Cranial nerves II through XII unremarkable. Cerebellum unremarkable. Motor and sensory unremarkable throughout. Exam nonfocal. Psychiatric: Mood and affect are appropriate. Normal thought process. Answering questions appropriately. Notes: *This patient was seen and evaluated during the 2019 SARS-CoV-2 novel coronavirus pandemic period. Community viral transmission is ongoing at time of this encounter and the emergency department is operating under pandemic response procedures. As stated above the patient is a 35-year-old female who presents to the emergency department for epigastric pain for the last 7 days. The patient is unable to eat as when she knows she has to vomit for 2 hours the patient has never had she has recently delivered a healthy 12 days ago. The patient is not breast-feeding and is formula feeding. I will order blood work and a CT. I will treat the patient's pain and discomfort with IV fluids, Zofran, and Dilaudid. The patient is agreeable with this plan. Dr. Allen, Radiologist, phoned regarding the patient's CT results. He indicated that The liver is normal in size. There is no focal mass. There is significant extra and intrahepatic biliary ductal dilatation with the common hepatic duct measuring up to 1.6 centimeters. The duct tapers to a normal caliber at the pancreatic head. There is cholelithiasis. No evidence of acute cholecystitis. The exact etiology of the presumed obstructive cholangiopathy is not visible though I suspect distal choledocholithiasis that is not visible on this study. No visible periampullary mass. He also verbally reported The uterus is normal in size. A small amount of fluid is noted in the endometrial canal. The right adnexa appears abnormal. There is a low-density structure measuring 5.7 x 2.7 centimeters which probably represents a dilated tube though it could represent a subserosal myoma. There is also a somewhat complex cystic structure measuring 3.1 centimeters which is likely right ovarian in origin. Follow-up sonography recommended at a clinically appropriate time. I consulted with Dr. Chan, who advised to obtain a ultrasound. I have ordered an targeted abdomen US. The patient's W BC is 11.7 and her hemoglobin is 10.4. Previously her hemoglobin on 02/27 has been 10.3. The patient's chemistry panel is significant for a glucose of 64. I ordered an amp of D50. The calcium is 8.4, AST 46, ALT 74, alkaline phosphatase 372. The patient's total bilirubin is 0.8. Patient's lipase is 39. The patient's urine is not indicated of an infection. Patient's follow-up glucose is 169 after administration of D50. Abdomen ultrasound IMPRESSION: 1. Gallbladder sludge with possible small gallstones. No sonographic evidence of acute cholecystitis. 2. Mild dilatation of the common bile duct, measuring up to 9 mm. No cause of obstruction is visualized sonographically. Further evaluation could be performed with MRCP or ERCP. I spoke with Dr. Francis from [facility] for consultation regarding the patient's imaging results and leukocytosis along with her abdominal pain. He advised [facility] which could not be provided in [facility] at this time. I spoke with the patient and informed her of Dr. Francis statement that an ERCP could not be done at my not. Dr. Chan consulting on the case. Ordered Zosyn 4.5. The patient would like for me to attempt transfer with [facility] at this time. I have a call into [facility] [employer]. I called [employer] back and was put on hold to speak to Dr. Snell, blade changer. The [employer] automotive leasing sales representative came back on the line and stated that Dr. Snell was busy and she would give me a phone call back. I spoke with Dr. Snell and he suggested the need for an MRI and transfer is reasonable if we are not able to do an MRI. Informed Dr. Snell that we were unable to do an MRI at this point in time. He will call automotive leasing sales representative, Brandee, is paging the hospitalist and will call me back. [employer] leasing sales representative Brandee return phone call with Dr. Srivastava on the line. Dr. Mota accepted transfer of patient. Patient had her negative Covid on 04/10/2021Nando Irvin from [facility] [employer] will see if that will meet criteria. I told the patient of the transfer and she stated that her pain was returning. I have ordered another dose of Dilaudid and zofran. Patient is to be transferred by ground. Diagnostics: CBC, CMP, lipase, UA, urine hCG, CT abdomen/pelvis, ultrasound abdomen Therapeutics: IV fluids, Zofran, Dilaudid, D50, 4.5 Zosyn Impression: Possible hepatic obstruction Definitive disposition and diagnosis as appropriate pending reevaluation and review of above. Abdomen Pain Score (Numeric/FACES): 8 - Related Data Allergies Allergy/AdvReac Type Severity Reaction Status Date / Time No Known Allergies Allergy Verified 04/15/21 12:25 Home Meds: Home Meds Multivitamin 1 tab PO DAILY 04/10/21 [History] Norethindrone 1 tab PO DAILY 04/10/21 [History] Past Medical History - Past Health History Medical/Surgical History: Denies Medical/Surgical History HEENT History: Reports: None Cardiovascular History: Reports: None Respiratory History: Reports: None Gastrointestinal History: Reports: None Genitourinary History: Reports: None MANAGER STARS History: Reports: , Other (See Below) Other MANAGER STARS History: IVF, post delivery hemorrhage, egg retrieval for IVF Musculoskeletal History: Reports: None Neurological History: Reports: None Psychiatric History: Reports: None Endocrine/Metabolic History: Reports: None Hematologic History: Reports: None Immunologic History: Reports: None Oncologic (Cancer) History: Reports: None Dermatologic History: Reports: None - Infectious Disease History Infectious Disease History: Reports: Chicken Pox, Influenza, Novel Coronavirus - Past Surgical History Head Surgeries/Procedures: Reports: None HEENT Surgical History: Reports: Oral Surgery Female Surgical History: Reports: D&C Social & Family History - Family History Family Medical History: No Pertinent Family History - Tobacco Use Tobacco Use Status *Q: Never Tobacco User - Caffeine Use Caffeine Use: Reports: Coffee, Soda - Recreational Drug Use Recreational Drug Use: No ED ROS GENERAL - Review of Systems Review Of Systems: Comprehensive ROS is negative, except as noted in HPI. ED EXAM, GI/ABD - Physical Exam Exam: See Below (See dictation) Course - Vital Signs Last Recorded V/S: Last Vital Signs Temp 97.1 F 04/15/21 12:25 Pulse 92 04/15/21 18:22 Resp 20 04/15/21 18:22 BP 137/62 04/15/21 18:22 Pulse Ox 98 04/15/21 18:22 - Orders/Labs/Meds Orders: Active Orders 24 hr Category Date Time Status Saline Lock Insert [OM.PC] Stat Oth 04/15/21 12:51 Ordered Labs: Laboratory Tests 04/15/21 04/15/21 04/15/21 Range/Units 12:40 12:40 13:58 WBC 11.70 H (4.0-11.0) K/uL RBC 4.31 (4.30-5.90) M/uL Hgb 10.4 L (12.0-16.0) g/dL Hct 32.9 L (36.0-46.0) % MCV 76.3 L (80.0-98.0) fL MCH 24.1 L (27.0-32.0) pg MCHC 31.6 (31.0-37.0) g/dL RDW Std Deviation 42.0 (28.0-62.0) fl RDW Coeff of Shahab 15 (11.0-15.0) % Plt Count 301 (150-400) K/uL MPV 11.00 (7.40-12.00) fL Neut % (Auto) 76.5 (48.0-80.0) % Lymph % (Auto) 17.3 (16.0-40.0) % [place] % (Auto) 5.8 (0.0-15.0) % Eos % (Auto) 0.1 (0.0-7.0) % Baso % (Auto) 0.3 (0.0-1.5) % Neut # (Auto) 9.0 H (1.4-5.7) K/uL Lymph # (Auto) 2.0 (0.6-2.4) K/uL [place] # (Auto) 0.7 (0.0-0.8) K/uL Eos # (Auto) 0.0 (0.0-0.7) K/uL Baso # (Auto) 0.0 (0.0-0.1) K/uL Nucleated RBC % 0.0 /100WBC Nucleated RBCs # 0 K/uL Sodium (136-145) mmol/L Potassium (3.5-5.1) mmol/L Chloride (98-107) mmol/L Carbon Dioxide (21.0-32.0) mmol/L BUN (7.0-18.0) mg/dL Creatinine (0.6-1.0) mg/dL Est Cr Clr Drug Dosing mL/min Estimated GFR (MDRD) ml/min Glucose (74-106) mg/dL POC Glucose (70-99) mg/dL Calcium (8.5-10.1) mg/dL Total Bilirubin (0.2-1.0) mg/dL AST (15-37) IU/L ALT (14-63) IU/L Alkaline Phosphatase (46-116) U/L Total Protein (6.4-8.2) g/dL Albumin (3.4-5.0) g/dL Globulin (2.6-4.0) g/dL Albumin/Globulin Ratio (0.9-1.6) Lipase (73-393) U/L Urine Color DARK YELLOW Urine Appearance SLT CLOUDY Urine pH 6.0 (5.0-8.0) Ur Specific [place] >= 1.030 (1.001-1.035) Urine Protein 100 H (NEGATIVE) mg/dL Urine Glucose (UA) NEGATIVE (NEGATIVE) mg/dL Urine Ketones >=80 (NEGATIVE) mg/dL Urine Occult Blood NEGATIVE (NEGATIVE) Urine Nitrite NEGATIVE (NEGATIVE) Urine Bilirubin MODERATE H (NEGATIVE) Urine Urobilinogen 1.0 (<2.0) EU/dL Ur Leukocyte Esterase NEGATIVE (NEGATIVE) U Hyaline Cast (Auto) FEW (0-2/LPF) Urine RBC 0-1 (0-2/HPF) Urine WBC 5-10 (0-5/HPF) Ur Epithelial Cells MODERATE (NONE-FEW) Urine Bacteria 2+ H (NEGATIVE) Urine Mucus MODERATE (NONE-MOD) Urine HCG, Qual NEGATIVE (NEGATIVE) 04/15/21 04/15/21 Range/Units 13:58 15:47 WBC (4.0-11.0) K/uL RBC (4.30-5.90) M/uL Hgb (12.0-16.0) g/dL Hct (36.0-46.0) % MCV (80.0-98.0) fL MCH (27.0-32.0) pg MCHC (31.0-37.0) g/dL RDW Std Deviation (28.0-62.0) fl RDW Coeff of Shahab (11.0-15.0) % Plt Count (150-400) K/uL MPV (7.40-12.00) fL Neut % (Auto) (48.0-80.0) % Lymph % (Auto) (16.0-40.0) % [place] % (Auto) (0.0-15.0) % Eos % (Auto) (0.0-7.0) % Baso % (Auto) (0.0-1.5) % Neut # (Auto) (1.4-5.7) K/uL Lymph # (Auto) (0.6-2.4) K/uL [place] # (Auto) (0.0-0.8) K/uL Eos # (Auto) (0.0-0.7) K/uL Baso # (Auto) (0.0-0.1) K/uL Nucleated RBC % /100WBC Nucleated RBCs # K/uL Sodium 137 (136-145) mmol/L Potassium 3.9 (3.5-5.1) mmol/L Chloride 102 (98-107) mmol/L Carbon Dioxide 21.3 (21.0-32.0) mmol/L BUN 14 (7.0-18.0) mg/dL Creatinine 0.8 (0.6-1.0) mg/dL Est Cr Clr Drug Dosing 91.01 mL/min Estimated GFR (MDRD) > 60.0 ml/min Glucose 64 L (74-106) mg/dL POC Glucose 169 H (70-99) mg/dL Calcium 8.4 L (8.5-10.1) mg/dL Total Bilirubin 0.8 (0.2-1.0) mg/dL AST 46 H (15-37) IU/L ALT 74 H (14-63) IU/L Alkaline Phosphatase 372 H (46-116) U/L Total Protein 7.2 (6.4-8.2) g/dL Albumin 3.5 (3.4-5.0) g/dL Globulin 3.7 (2.6-4.0) g/dL Albumin/Globulin Ratio 0.9 (0.9-1.6) Lipase 39 L (73-393) U/L Urine Color Urine Appearance Urine pH (5.0-8.0) Ur Specific [place] (1.001-1.035) Urine Protein (NEGATIVE) mg/dL Urine Glucose (UA) (NEGATIVE) mg/dL Urine Ketones (NEGATIVE) mg/dL Urine Occult Blood (NEGATIVE) Urine Nitrite (NEGATIVE) Urine Bilirubin (NEGATIVE) Urine Urobilinogen (<2.0) EU/dL Ur Leukocyte Esterase (NEGATIVE) U Hyaline Cast (Auto) (0-2/LPF) Urine RBC (0-2/HPF) Urine WBC (0-5/HPF) Ur Epithelial Cells (NONE-FEW) Urine Bacteria (NEGATIVE) Urine Mucus (NONE-MOD) Urine HCG, Qual (NEGATIVE) Meds: Medications Discontinued Medications Generic Name Dose Route Start Last Admin Trade Name Freq PRN Reason Stop Dose Admin Dextrose/Water 50 ml 04/15/21 15:07 04/15/21 15:09 50% Dextrose In Water 50 Ml Syringe IVPUSH 04/15/21 15:08 50 ml ONETIME ONE Administration Hydromorphone HCl 1 mg 04/15/21 12:52 04/15/21 13:16 Hydromorphone 1 Mg/Ml Syringe IVPUSH 04/15/21 12:53 1 mg ONETIME ONE Administration Hydromorphone HCl 1 mg 04/15/21 18:25 04/15/21 19:06 Hydromorphone 1 Mg/Ml Syringe IVPUSH 04/15/21 18:26 1 mg ONETIME ONE Administration Sodium Chloride 1,000 mls @ 999 mls/hr 04/15/21 12:51 04/15/21 13:19 Normal Saline IV 04/15/21 13:51 999 mls/hr BOLUS ONE Administration Piperacillin Sod/Tazobactam 100 mls @ 100 mls/hr 04/15/21 17:07 04/15/21 17:29 Sod 4.5 gm/ Sodium Chloride IV 04/15/21 18:06 100 mls/hr ONETIME ONE Administration Iopamidol 100 ml 04/15/21 17:53 04/15/21 17:54 Iopamidol 755 Mg/Ml 500 Ml Multipack Bottle IVPUSH 04/15/21 17:54 100 ml ONETIME ONE Administration Metoclopramide HCl 5 mg 04/15/21 19:37 04/15/21 19:41 Metoclopramide 10 Mg/2 Ml Sdv IVPUSH 04/15/21 19:38 Not Given ONETIME ONE Metoclopramide HCl 5 mg 04/15/21 19:38 Metoclopramide 10 Mg/2 Ml Sdv IVPUSH 04/15/21 19:39 ONETIME ONE Metoclopramide HCl 10 mg 04/15/21 19:39 04/15/21 19:41 Metoclopramide 10 Mg/2 Ml Sdv IVPUSH 04/15/21 19:40 10 mg ONETIME ONE Administration Metoclopramide HCl Confirm 04/15/21 19:39 04/15/21 19:41 Metoclopramide 10 Mg/2 Ml Sdv Administered 04/15/21 19:40 Not Given Dose 10 mg .ROUTE .STK-MED ONE Ondansetron HCl 4 mg 04/15/21 12:51 04/15/21 13:16 Ondansetron 4 Mg/2 Ml Sdv IVPUSH 04/15/21 12:52 4 mg ONETIME ONE Administration Ondansetron HCl 4 mg 04/15/21 18:54 04/15/21 19:08 Ondansetron 4 Mg/2 Ml Sdv IVPUSH 04/15/21 18:55 4 mg ONETIME ONE Administration Sodium Chloride 10 ml 04/15/21 12:51 04/15/21 13:13 Sodium Chloride 0.9% 10 Ml Syringe FLUSH 10 ml ASDIRECTED PRN Administration Keep Vein Open Sodium Chloride 2.5 ml 04/15/21 12:51 04/15/21 13:13 Sodium Chloride 0.9% 2.5 Ml Syringe FLUSH 2.5 ml ASDIRECTED PRN Administration Keep Vein Open Departure - Departure Time of Disposition: 18:35 Disposition: DC/Tfer to Acute Hospital 02 Condition: Good Clinical Impression: Obstruction of pancreatic duct - Discharge Information *PRESCRIPTION DRUG MONITORING PROGRAM REVIEWED*: Not Applicable *COPY OF PRESCRIPTION DRUG MONITORING REPORT IN PATIENT OLLIE: Not Applicable Referrals: Katherin Lowe MD [Primary Care Provider] - Forms: ED Department Discharge Sepsis Event Note (ED) - Evaluation Sepsis Screening Result: No Definite Risk - Focused Exam Vital Signs: Vital Signs Temp Pulse Resp BP Pulse Ox 04/15/21 18:22 92 20 137/62 98 04/15/21 16:15 80 97/56 L 04/15/21 14:52 85 94/55 L 04/15/21 13:05 87 92/62 04/15/21 12:25 97.1 F 102 H 16 145/111 H 95 - My Orders Last 24 Hours: My Active Orders 04/15/21 12:51 Saline Lock Insert [OM.PC] Stat - Assessment/Plan Last 24 Hours: My Active Orders 04/15/21 12:51 Saline Lock Insert [OM.PC] Stat
--- NOTE | 2021-04-15 14:10 | CT ---
INDICATION: Upper abdominal pain with postprandial emesis COMPARISON: There are no prior studies for comparison TECHNIQUE: CT examination of the abdomen and pelvis was performed following the uneventful intravenous administration of 100 cc of Isovue 370. Thin section axial images were obtained from the lung bases through the pubic symphysis. Oral contrast was not administered. Please note that all CT scans at this facility use dose modulation, iterative reconstruction, and/or weight-based dosing when appropriate to reduce radiation dose to as low as reasonably achievable. FINDINGS: LUNG BASES: Linear opacities at the lung bases are likely related to atelectasis or scarring. There is a small hiatal hernia. Heart size normal and the lung bases. LIVER/BILIARY SYSTEM:The liver is normal in size. There is no focal mass. There is significant extra and intrahepatic biliary ductal dilatation with the common hepatic duct measuring up to 1.6 centimeters. The duct tapers to a normal caliber at the pancreatic head. There is cholelithiasis. No evidence of acute cholecystitis. The exact etiology of the presumed obstructive cholangiopathy is not visible though I suspect distal choledocholithiasis that is not visible on this study. No visible periampullary mass. ADRENALS: Normal KIDNEYS, URETERS and BLADDER:The kidneys appear normal. No visible mass, calculus or hydronephrosis. The ureters and bladder as visualized appear normal. SPLEEN:Normal appearance. PANCREAS: Appears normal. RETROPERITONEUM and MESENTERY: There is no mass, adenopathy or aortic aneurysm. GASTROINTESTINAL SYSTEM: There is no evidence of diverticulitis, colitis, mechanical obstruction, or appendicitis. The small bowel as visualized appears normal. PELVIS: The uterus is normal in size. A small amount of fluid is noted in the endometrial canal. The right adnexa appears abnormal. There is a low-density structure measuring 5.7 x 2.7 centimeters which probably represents a dilated tube though it could represent a subserosal myoma. There is also a somewhat complex cystic structure measuring 3.1 centimeters which is likely right ovarian in origin. Follow-up sonography recommended at a clinically appropriate time. OSSEOUS STRUCTURES and ABDOMINAL WALL: There is an age-appropriate appearance of the osseous structures.No significant abdominal wall defect. OTHER: No free fluid or free air. IMPRESSION: 1. Intra-and extrahepatic biliary ductal dilatation with the common duct measuring up to 1.6 centimeters. There is cholelithiasis but there is no evidence of acute cholecystitis. The duct tapers to normal caliber at the pancreatic head. I see no periampullary mass. There is no visible stone. I suspect that there is distal choledocholithiasis that is not directly visible on this exam. 2. Abnormal uterus and right adnexa. This could be due to myomatous involvement though tubal disease on the right is possible. There is also what is likely a complex 3.1 centimeter right ovarian cystic lesion. Sonography recommended any clinically appropriate time. 3. I discussed the findings with Nadine Taylor at 2 p.m. on April 15, [address] that all [address] scans at this facility use dose modulation, iterative reconstruction, and/or weight-based dosing when appropriate to reduce radiation dose to as low as reasonably achievable. Dictated by Saul Allen MD @ 04/15/2021 2:08:21 PM (Electronically Signed)
[2021-04-15 14:24] LABS: BLOOD UREA NITROGEN,BUN 14 mg/dL (7.0-18.0); CARBON DIOXIDE,CO2 21.3 mmol/L (21.0-32.0); CHLORIDE,CL 102 mmol/L (98-107); GLUCOSE RANDOM 64 mg/dL (74-106); LIPASE 39 U/L (73-393); POTASSIUM,K 3.9 mmol/L (3.5-5.1); SODIUM,NA 137 mmol/L (136-145)
[2021-04-15] MEDS ORDERED: 50% Dextrose in Water 50 ML Syringe IVPUSH ONE (15:07)
--- NOTE | 2021-04-15 16:04 | US ---
INDICATION: Concern for common bile duct obstruction. TECHNIQUE: Ultrasound abdomen limited. Sonographic images of the right upper quadrant were obtained using hooper-scale and color Doppler images. COMPARISON: CT abdomen and pelvis earlier same date 04/15/2021 FINDINGS: Liver: Normal in size and echotexture. No focal liver lesion is visualized. Mild intrahepatic biliary dilatation. Gallbladder: The gallbladder is nondistended. Sludge with possible small gallstones. No gallbladder wall thickening or pericholecystic fluid. Sonographic Garrett sign is negative. Common bile duct: 9 mm. Pancreas: The visualized portions of the pancreas are unremarkable. The tail is obscured by overlying bowel gas. Right kidney: 10.2 cm. Normal echotexture and cortex. Negative for hydronephrosis. IMPRESSION: 1. Gallbladder sludge with possible small gallstones. No sonographic evidence of acute cholecystitis. 2. Mild dilatation of the common bile duct, measuring up to 9 mm. No cause of obstruction is visualized sonographically. Further evaluation could be performed with MRCP or ERCP. Dictated by Arlene Berger MD @ 04/15/2021 4:02:48 PM (Electronically Signed)
[2021-04-15] MEDS ORDERED: Piperacillin/Tazobactam 4.5 GM in Sodium Chloride 0.9% 100 ML IV ONE (17:07)
[2021-04-15] MEDS ORDERED: Iopamidol 755 MG/ML 500 ML Multipack Bottle IVPUSH ONE (17:53)
[2021-04-15] MEDS ORDERED: Metoclopramide 10 MG/2 ML SDV IVPUSH ONE ×3 (19:37→19:39)
[2021-04-15] MEDS ORDERED: Metoclopramide 10 MG/2 ML SDV ONE (19:39)
== END 2021-04-15 19:46 ==
LOC: MW.ED 12:19
DX: K86.89 Other specified diseases of pancreas (principal)
CPT/HCPCS: 36415; 74177; 76705; 80053; 81001; 81025; 82947; 83690; 85025; 96365; 96375; 96376; 99285; J1170; J2405; J2543; J2765; J7030; Q9967

== ENCOUNTER 2022-04-25 06:28 | Emergency (ER) | payer BC ==
[2022-04-25] MEDS ORDERED: Morphine 4 MG/ML Syringe IVPUSH STA (07:07)
== END 2022-04-25 09:04 | disposition home or self-care (01) ==
LOC: MW.ED 06:28
DX: O03.4 Incomplete spontaneous abortion without complication (principal); Z79.899 Other long term (current) drug therapy; Z86.16 Personal history of COVID-19
CPT/HCPCS: 36415; 76817; 84702; 85025; 85610; 86850; 86900; 86901; 96374; 99284; J2270

== ENCOUNTER 2023-05-09 05:00 | Inpatient (IN) | payer BC ==
[2023-05-09] MEDS ORDERED: Citric Acid/Sodium Citrate Solution 30 ML Cup PO ONE (05:04)
[2023-05-09] MEDS ORDERED: Sodium Chloride 0.9% 10 ML Syringe FLUSH PRN (05:04)
[2023-05-09] MEDS ORDERED: Sodium Chloride 0.9% 20 ML SDV IV PRN (05:04)
[2023-05-09] MEDS ORDERED: Sodium Chloride 0.9% 2.5 ML Syringe FLUSH PRN (05:04)
[2023-05-09] MEDS ORDERED: ceFAZolin 2 GM in Sodium Chloride 0.9% 50 ML IV ONE (05:09)
[2023-05-09] MEDS ORDERED: Oxytocin/0.9 % Sodium Chloride 30 UNIT/500 ML BAG IV SCH (05:15)
[2023-05-09] MEDS: Lactated Ringers 1,000 ML IV SCH ×4 (05:39→21:56)
[2023-05-09 06:08] LABS: HEMATOCRIT 35.7 % (37.0-47.0); HEMOGLOBIN 11.9 g/dL (12.0-16.0); MEAN CORPUSCULAR HEMOGLOBIN 27.2 pg (28.0-32.0); MEAN CORPUSCULAR HGB CONC 33.3 g/dL (32.0-36.0); MEAN CORPUSCULAR VOLUME 81.5 fL (83.0-99.0); MEAN PLATELET VOLUME 12.9 fL (9.4-12.3); PLATELET COUNT,PLT 275 K/uL (150-400); RED BLOOD CELL COUNT 4.38 M/uL (4.10-5.30); WHITE BLOOD CELL COUNT,WBC 12.66 K/uL (3.9-11.3)
[2023-05-09] MEDS ORDERED: ceFAZolin 1 GM Vial ONE (07:43)
[2023-05-09] MEDS ORDERED: ePHEDrine 50 MG/ML SDV ONE (07:43)
[2023-05-09] MEDS ORDERED: Oxytocin 10 Units/1 ML SDV ONE ×2 (07:43→08:52)
[2023-05-09] MEDS ORDERED: Ondansetron 4 MG/2 ML SDV ONE (07:43)
[2023-05-09] MEDS ORDERED: Bupivacaine 0.25% 30 ML SDV ONE (07:43)
[2023-05-09] MEDS ORDERED: Ropivacaine 0.5% 5 MG/ML 30 ML SDV ONE (07:43)
[2023-05-09] MEDS ORDERED: Ketorolac 30 MG/ML SDV ONE (07:43)
[2023-05-09] MEDS ORDERED: Morphine PF 10 MG/10 ML SDV ONE (07:44)
[2023-05-09] MEDS ORDERED: fentaNYL 100 MCG/2 ML SDV ONE (07:44)
[2023-05-09] MEDS ORDERED: Methylergonovine 0.2 MG/1 ML Amp ONE (08:18)
[2023-05-09] MEDS ORDERED: Carboprost Tromethamine 250 MCG/1 mL Vial ONE (08:18)
[2023-05-09] MEDS ORDERED: Phenylephrine 1% 10 MG/ML SDV ONE (08:39)
[2023-05-09 08:52] LABS: CORONAVIRUS COVID-19 NAA NEGATIVE (NEGATIVE); INFLUENZA A NAA NEGATIVE (NEGATIVE); INFLUENZA B NAA NEGATIVE (NEGATIVE); RESPIRATORY SYNCYTIAL VIR NAA NEGATIVE (NEGATIVE)
[2023-05-09] MEDS ORDERED: Ondansetron 4 MG/2 ML SDV IVPUSH PRN ×3 (09:43→09:50)
[2023-05-09] MEDS ORDERED: diphenhydrAMINE 50 MG/ML SDV IVPUSH PRN ×2 (09:43→09:50)
[2023-05-09] MEDS ORDERED: ePHEDrine 50 MG/ML SDV IVPUSH PRN (09:43)
[2023-05-09] MEDS ORDERED: Albuterol 0.083% 2.5 MG/3 ML Neb Soln NEB PRN (09:43)
[2023-05-09] MEDS ORDERED: HYDROmorphone 1 MG/ML Syringe IVPUSH PRN (09:43)
[2023-05-09] MEDS ORDERED: fentaNYL 100 MCG/2 ML SDV IVPUSH PRN (09:43)
[2023-05-09] MEDS ORDERED: Morphine 2 MG/ML SYRINGE IVPUSH PRN (09:43)
[2023-05-09] MEDS ORDERED: fentaNYL 50 MCG/ML SDV IVPUSH PRN (09:43)
[2023-05-09] MEDS ORDERED: droPERidol 5 MG/2 ML SDV IVPUSH PRN (09:43)
[2023-05-09] MEDS ORDERED: Naloxone 0.4 MG/ML SDV IVPUSH PRN (09:43)
[2023-05-09] MEDS ORDERED: Metoclopramide 10 MG/2 ML SDV IVPUSH PRN (09:43)
[2023-05-09] MEDS ORDERED: Misoprostol 200 MCG Tab RECTAL PRN (09:50)
[2023-05-09] MEDS ORDERED: Oxytocin 10 Units/1 ML SDV IM PRN (09:50)
[2023-05-09] MEDS ORDERED: Acetaminophen/oxyCODONE 325-5 MG Tab PO PRN (09:50)
[2023-05-09] MEDS ORDERED: Bisacodyl 10 MG Supp RECTAL PRN (09:50)
[2023-05-09] MEDS ORDERED: Methylergonovine 0.2 MG/1 ML Amp IM PRN (09:50)
[2023-05-09] MEDS ORDERED: Lanolin 100% Cream 7 GM Tube TOP PRN (09:50)
[2023-05-09 10:09] LABS: PH,UMBILICAL ARTERIAL 7.251 (7.18-7.38); PH,UMBILICAL VENOUS 7.287 (7.25-7.45)
[2023-05-09] MEDS: Simethicone 80 MG Tab.Chew PO SCH ×2 (12:21→18:30)
[2023-05-09] MEDS: Acetaminophen 1,000 MG in Premix Bag 1 BAG IV SCH ×2 (12:22→18:30)
[2023-05-10] MEDS: Acetaminophen 1,000 MG in Premix Bag 1 BAG IV SCH ×2 (00:07→06:43)
[2023-05-10] MEDS: Simethicone 80 MG Tab.Chew PO SCH ×4 (00:14→18:08)
[2023-05-10] MEDS: Benzonatate 100 MG Cap PO PRN ×3 (02:45→18:09)
[2023-05-10 06:11] LABS: HEMATOCRIT 31.7 % (37.0-47.0); HEMOGLOBIN 10.1 g/dL (12.0-16.0)
[2023-05-10] MEDS: Ibuprofen 800 MG Tab PO PRN ×2 (09:29→18:09)
[2023-05-10] MEDS: Docusate Sodium 100 MG Cap PO SCH ×2 (09:31→22:22)
[2023-05-10] MEDS: Azithromycin 250 MG Tab PO SCH (10:21)
[2023-05-10] MEDS: Acetaminophen/oxyCODONE 325-5 MG Tab PO PRN ×3 (12:47→22:20)
[2023-05-11] MEDS: Benzonatate 100 MG Cap PO PRN ×2 (00:27→08:54)
[2023-05-11] MEDS: Simethicone 80 MG Tab.Chew PO SCH ×2 (00:27→08:59)
[2023-05-11] MEDS: Acetaminophen/oxyCODONE 325-5 MG Tab PO PRN ×2 (02:44→08:55)
[2023-05-11] MEDS: Ibuprofen 800 MG Tab PO PRN (02:46)
[2023-05-11] MEDS: Docusate Sodium 100 MG Cap PO SCH (08:54)
[2023-05-11] MEDS: Azithromycin 250 MG Tab PO SCH (08:54)
== END 2023-05-11 10:35 | disposition home or self-care (01) | DRG 540 ==
LOC: MW.OB 05:00
PROVIDERS: ADMIT Obstetrics & Gynecology; ATTEND Obstetrics & Gynecology
PROC: 10D00Z1 Extraction of Products of Conception, Low, Open Approach (ICD-10-PCS; principal; 2023-05-09 08:00)
DX: O32.1XX0 Maternal care for breech presentation, not applicable or unspecified (principal); Z37.0 Single live birth; D62 Acute posthemorrhagic anemia; O99.214 Obesity complicating childbirth; O99.824 Streptococcus B carrier state complicating childbirth; O99.52 Diseases of the respiratory system complicating childbirth; J40 Bronchitis, not specified as acute or chronic; O36.63X0 Maternal care for excessive fetal growth, third trimester, not applicable or unspecified; O69.2XX0 Labor and delivery complicated by other cord entanglement, with compression, not applicable or unspecified; O90.81 Anemia of the puerperium; Z3A.39 39 weeks gestation of pregnancy; Z11.52 Encounter for screening for COVID-19
CPT/HCPCS: 0241U; 36415; 59025; 82803; 85014; 85018; 85027; 86592; 86850; 86870; 86900; 86901; 86902; 86920; 86921; 86922; A9270-GY; J0131; J0665; J0690; J1100; J1885; J2210; J2274; J2371; J2405; J2590; J2795; J3010; J3490; J7120

== ENCOUNTER 2023-12-19 12:44 | Emergency (ER) | payer BC ==
[2023-12-19 13:07] LABS: BASOPHILS ABSOLUTE AUTO 0.06 K/uL (0.00-0.20); BASOPHILS PERCENT AUTO 0.5 % (0.0-1.0); EOSINOPHILS ABSOLUTE AUTO 0.09 K/uL (0.00-0.45); EOSINOPHILS PERCENT AUTO 0.8 % (0.0-6.0); HEMATOCRIT 36.5 % (37.0-47.0); HEMOGLOBIN 11.6 g/dL (12.0-16.0); IMMATURE GRAN ABSOLUTE AUTO 0.02 K/uL (0.00-0.05); IMMATURE GRAN PERCENT AUTO 0.2 % (0.0-0.4); LYMPHOCYTES ABSOLUTE AUTO 2.85 K/uL (1.00-4.80); LYMPHOCYTES PERCENT AUTO 26.1 % (24.0-44.0); MEAN CORPUSCULAR HEMOGLOBIN 25.1 pg (28.0-32.0); MEAN CORPUSCULAR HGB CONC 31.8 g/dL (32.0-36.0); MEAN PLATELET VOLUME 9.9 fL (9.4-12.3); MONOCYTES ABSOLUTE AUTO 0.55 K/uL (0.00-0.80); NEUTROPHILS ABSOLUTE AUTO 7.35 K/uL (1.80-7.70); NEUTROPHILS PERCENT AUTO 67.4 % (41.0-71.0); PLATELET COUNT,PLT 333 K/uL (150-400); RED BLOOD CELL COUNT 4.62 M/uL (4.10-5.30); WHITE BLOOD CELL COUNT,WBC 10.92 K/uL (3.9-11.3)
[2023-12-19 13:45] LABS: A/G RATIO 0.8 (0.9-1.6); ALANINE AMINOTRANSFERASE,ALT 22 IU/L (14-63); ALBUMIN 3.2 g/dL (3.4-5.0); ALKALINE PHOSPHATASE 125 U/L (46-116); ASPARTATE AMNIOTRANSFERASE,AST 13 IU/L (15-37); BILIRUBIN TOTAL 0.2 mg/dL (0.2-1.0); BLOOD UREA NITROGEN,BUN 7 mg/dL (7.0-18.0); CALCIUM 8.9 mg/dL (8.5-10.1); CARBON DIOXIDE,CO2 28.4 mmol/L (21.0-32.0); CHLORIDE,CL 103 mmol/L (98-107); CREATININE 0.7 mg/dL (0.6-1.0); GLUCOSE RANDOM 92 mg/dL (74-106); PROTEIN TOTAL,TP 7.3 g/dL (6.4-8.2); SODIUM,NA 137 mmol/L (136-145)
[2023-12-19 13:46] LABS: ESTIMATED GFR 113 mL/min (>60)
[2023-12-19 14:18] LABS: BILIRUBIN,URINE NEGATIVE (NEGATIVE); COLOR,URINE YELLOW; GLUCOSE,URINE NEGATIVE (NEGATIVE); KETONES,URINE NEGATIVE (NEGATIVE); LEUKOCYTE ESTERASE,URINE SMALL (NEGATIVE); NITRITE,URINE NEGATIVE (NEGATIVE); OCCULT BLOOD,URINE LARGE (NEGATIVE); PROTEIN,URINE NEGATIVE (NEGATIVE); UROBILINOGEN,URINE 0.2 EU/dL (<2.0)
[2023-12-19 14:28] LABS: APPEARANCE,URINE SLT CLOUDY
[2023-12-19 14:29] LABS: BACTERIA,URINE FEW (NEGATIVE); EPITHELIAL CELLS,URINE FEW (NONE-FEW); RBC,URINE 0-1 (0-2/HPF); WBC,URINE 0-2 (0-5/HPF)
== END 2023-12-19 15:41 | disposition home or self-care (01) ==
LOC: MW.ED 12:44
DX: O20.9 Hemorrhage in early pregnancy, unspecified (principal); R10.30 Lower abdominal pain, unspecified; E66.9 Obesity, unspecified; Z3A.01 Less than 8 weeks gestation of pregnancy; Z75.8 Other problems related to medical facilities and other health care
CPT/HCPCS: 36415; 76817; 76817-26; 80053; 81001; 84702; 85025; 86900; 86901; 87086; 99284